=== PATIENT | male | born 1965 | race Caucasian/White ===

== ENCOUNTER → 2017-12-25 09:19 | Outpatient (CLI) | payer BC, SELFPAY ==
[2017-12-25 12:24] LABS: Absolute Lymphocyte Count 1.82 X10^3/ul (0.83-4.51); Absolute Neutrophil Count 2.6 X10^3/uL (2.0-7.7); Basophil# 0.01 X10^3/uL; Basophil% 0.2 % (0-1); Eosinophil# 0.13 X10^3/uL; Eosinophils% 2.4 % (0-5); Hematocrit 43.8 % (40-54); Hemoglobin 14.7 g/dl (13.0-16.5); Lymphocyte # 1.82 X10^3/ul (4.0); Lymphocyte % 33.8 % (19-41); Mean Corp Hgb Conc 33.6 g/gl (32-36); Mean Corpuscular Hgb 28.6 pg (27.0-32.0); Mean Corpuscular Volume 85.2 fL (80-94); Mean Platelet Vol. 10.3 fl (6.2-12.0); Monocyte# 0.77 X10^3/uL; Monocyte% 14.3 % (0-10); Neutrophil # 2.63 X10^3/uL (2.7-7.7); Neutrophil % 48.7 % (47-70); Platelet Count 222 K/mm3 (150-450); RBC Distribution Width SD 39.9 fl (35.1-43.9); Red Blood Count 5.14 M/mm3 (4.6-6.2); White Blood Count 5.4 K/mm3 (4.4-11.0)
[2017-12-25 12:29] LABS: POSITIVE COUNT NO; POSITIVE DIFFERENTIAL NO; POSITIVE MORPHOLOGY NO
[2017-12-25 12:38] LABS: ALB/GLOB Ratio 1.2 RATIO (0.9-2.4); AST(SGOT) 16 U/L (15-37); Alanine Aminotransfer ALT/SGPT 25 U/L (16-61); Albumin, Serum 4.1 g/dL (3.2-5.0); Alkaline Phosphatase 66 U/L (45-117); Anion Gap 6 (5-15); BUN 16 mg/dL (7-18); Calcium,Total 8.5 mg/dL (8.5-10.1); Chloride 105 mmol/L (98-107); Cholesterol 168 mg/dL (200); EST Glomerular Filtration Rate 83 mL/min (>60); Est Glom Filt Rate - Afr Amer 100 mL/min (>60); Globulin 3.4 g/dL (2.2-4.2); Glucose 83 mg/dL (74-106); High Density Lipoprotein 42 mg/dL; Potassium 4.2 mmol/L (3.5-5.1); Protein, Total 7.5 g/dL (6.4-8.2); Sodium Level 139 mmol/L (136-145); Triglycerides 67 mg/dL; Very Low Density Lipoprotein 13 mg/dL (5-40)
--- NOTE | 2017-12-25 14:09 | EKG12_ITS ---
Test Reason : HTN Blood Pressure : / mmHG Vent. Rate : 075 BPM Atrial Rate : 075 BPM P-R Int : 188 ms QRS Dur : 080 ms QT Int : 346 ms P-R-T Axes : 065 032 048 degrees QTc Int : 386 ms Normal sinus rhythm with sinus arrhythmia Normal ECG Confirmed by GIACOMO WILLSON, ELIN ([id number]), commissioning editor MARV FLOYD ([id number]) on 12/26/2017 12:52:02 PM Referred By: Dulce Franks Confirmed By:ELIN GOODEN MD
== END ==
PROVIDERS: Family Provider Internal Medicine; PCP Internal Medicine; Visit Provider Internal Medicine
DX: R03.0 Elevated blood-pressure reading, without diagnosis of hypertension (principal); S10.96XA Insect bite of unspecified part of neck, initial encounter; W57.XXXA Bitten or stung by nonvenomous insect and other nonvenomous arthropods, initial encounter
CPT/HCPCS: 36415; 80053; 80061; 85025; 93005

== ENCOUNTER → 2018-01-24 14:08 | Outpatient (CLI) | payer BC, SELFPAY ==
[2018-01-21 14:27] LABS: EST Glomerular Filtration Rate 74 mL/min (>60); Est Glom Filt Rate - Afr Amer 90 mL/min (>60)
--- NOTE | 2018-01-24 14:15 | CT_ITS ---
STUDY: CT SOFT TISSUE NECK WITH CONTRAST REASON FOR EXAM: Male, 52 years old. Left sided neck mass. Enlarged lymph nodes. RADIATION DOSAGE (If Supplied By Facility): CTDIvol = ( 21.48 ) mGy, DLP = ( 595.26 ) mGycm TECHNIQUE: The patient was scanned in a multi-detector CT scanner. High resolution transaxial imaging was performed following intravenous administration of 100 ml of Isovue 300 contrast material. Sagittal and coronal images were reconstructed. Individualized dose optimization techniques were used for this CT. COMPARISON: None. FINDINGS: Normal bilateral parotid glands. Normal bilateral mortgage assistant spaces. Normal bilateral parapharyngeal spaces. Normal bilateral sublingual and submandibular glands and spaces. Normal visualized nasopharynx. Normal retropharyngeal space. Normal perivertebral space. Normal visualized bilateral faucial tonsils. The visualized tongue, tongue base and oropharynx are normal. There are enlarged nodes predominantly in the left carotid space, the largest measures about 2.4 cm. There are few small nodes in the left posterior triangle of the neck. Few nodes are seen on the right side but normal in size. There is no demonstrated solid or cystic mass lesion. There is no abnormal contrast enhancement. Normal epiglottis, bilateral vallecula and hypopharynx. The pre-epiglottic and paraglottic adipose spaces are normal. Normal visualized bilateral piriform sinuses, aryepiglottic folds, vocal cords, and arytenoid-cricoid articulations. Normal subglottic trachea. Normal bilateral lobes of the thyroid gland. Normal visualized pulmonary apices. Normal visualized paranasal sinuses. There is straightening of the cervical spine. There is a small posterior degenerative spur at the level of C5-C6. CT/Soft Tissue Neck WITH Contrast IMPRESSION: Large nodes on the left side of the neck as described above. Unremarkable airway. Electronically Signed: Chriss Benavides MD at 14:21 EDT Tel , Service support ,
== END ==
PROVIDERS: Family Provider Internal Medicine; PCP Internal Medicine; Visit Provider Otolaryngology
DX: R59.0 Localized enlarged lymph nodes (principal)
CPT/HCPCS: 36415; 70491; 82565; Q9967

== ENCOUNTER 2018-02-07 07:51 | Day surgery (SDC) | payer BC, SELFPAY ==
[2018-02-07] VITALS (7 sets, daily range): BP systolic 114–145; BP diastolic 73–88; PULSE 68–90; RESP 16–18; TEMP 36–36.8; O2SAT 96–100; BMI 28.3
--- NOTE | 2018-02-07 | LYMN_PTH ---
PATIENT: TYRESE HERNANDEZ [place] [facility] [id number] AGE/SX: 52/M ROOM: RE02/07/[address]: Dr. Thony Cota MD : 1965 BED: DIS: 02/07/2018 SPEC #: [id number] RECD: 02/07/18 10:55 STATUS: [facility] #: [id number] RACH: 02/07/18 00:[address]: Thony Cota DEPT: SURGICAL PATHOLOGY RECD BY: Akilah Ramirez ENTERED: 02/07/18 11:30 SP TYPE: LYMPH NODE OTHR DR: Dr. Dulce Franks MD Tissues: LYMPH NODE BIOPSY Procedures: Frozen Section (charge) Surgery Specimen Level IV HEADER OPERATION: Biopsy/excision lymph node, open deep cervical node with FS PRE-OP DIAGNOSIS: Enlarged cervical lymph node - left TISSUE SUBMITTED: Cervical lymph node ? left, sent to lab for frozen at 1047 FROZEN SECTION DIAGNOSIS Left cervical lymph node, biopsy: Consistent with lymphoproliferative disorder. AM:nick 02/07/18 MICROSCOPIC DIAGNOSIS Left cervical lymph node, excision: Lymph node with benign lymphoid follicular hyperplasia. AM:manan 02/10/18 COMMENT Flow cytometric analysis and immunohistochemistries ([id number]) support the above diagnosis. The complete FLOW report is viewable in patient?s EMR. MICROSCOPIC DESCRIPTION Slides are reviewed. GROSS DESCRIPTION Received fresh for frozen section consultation/diagnosis labeled with the patient's name is a specimen designated cervical lymph node, left. The specimen consists of an ovoid fragment of veliz-yellow tissue measuring 6 x 3 x 2.2 cm. Sections revealed bulging, fresh, flush cut surface. Touch prep smears are prepared. Hairpiece Stylist sections are submitted for frozen section consultation. Portions of the tissue are submitted for flow cytometric analysis. Additional cash application representative sections are submitted for permanent section in cassettes 2-5. AM:manan 02/07/18 TC:5 CPT:54025, 69360
--- NOTE | 2018-02-07 | IMM_PTH ---
PATIENT: TYRESE HERNANDEZ [place] [facility] [place][id number] AGE/SX: 52/M ROOM: RE02/07/[address]: Dr. Thony Cota MD : 1965 BED: DIS: 02/07/2018 SPEC #: [id number] RECD: 02/10/18 15:38 STATUS: UCHE REQ #: [id number] RACH: 02/07/18 00:[address]: Thony Cota DEPT: IMMUNOHISTOCHEMISTRY RECD BY: Margaret Flores ENTERED: 02/10/18 15:40 SP TYPE: IMMUNO OTHR DR: Dr. Dulce Franks MD Tissues: Lymph node, NOS Procedures: BCL-2 (add) BCL-6 (add) CD10 (add) CD138 (add) CD15 (add) CD20 (add) CD30 (add) CD43 (add) CD45 (add) CD5 (add) CD79A (add) CYCLIN (add) KAPPA (add) LAMBDA (add) AE1 (add) MUM1 (add) CD3 (initial) PHYSICIAN & [place] [id number] SPECIMEN INFORMATION: Tissue Source: Left cervical lymph node, biopsy Clinical Info: Enlarging cervical lymph node, left Specimen Number: [id number] #2 CPT code: 87127, 18233 x16 METHODOLOGY: Deparaffinized sections of prefer/formalin-fixed tissue or PAP/DQ stained slides are incubated with monoclonal/polyclonal antibodies/oligonucleotide probes. Localization is made via biotin free immunoperoxidase method. Appropriate controls are performed and reacted as expected. Results on target cell population are indicated in the following table: RESULTS: ANTIBODY / CLONE RESULT Block #2 CD3 (PS1) positive CD5 (SP10) positive CD10 (56C6) negative CD15 (MMA) negative CD20 (L26) positive CD30 (William-H2) negative CD45 (RP2/18) positive CD79a (11E3) positive BCL-2 (bcl-2/100/D5) negative CD43 (L60) positive BCL-6 (EI746B/A8) negative [place]in D1/BCL-1 (SP4) negative MUM1 (MRQ-43) negative CD138 (B-A38) negative [place] (polyclonal) negative Lambda (polyclonal) negative AE1-3 (AE1/AE3/PCK26) negative These tests were developed and their performance characteristics determined by [facility]. They may not have been cleared or approved by the U.S. Food and Drug Administration. The FDA has determined that such clearance or approval is not necessary. INTERPRETATION: Left cervical lymph node, excision: Benign lymphoid follicular hyperplasia. AM:nick 02/12/18 Comment: A polytypic lymphocyte population is present. Flow analysis concurs.
[2018-02-07] MEDS: Bacitracin 500 UNITS/GM PACKET (10:25)
--- NOTE | 2018-02-07 11:03 | DCINST_ITS ---
You will use the following diet at home:: No restrictions Your food should be the consistency of: Regular Discharge Activity: Return to Normal Activity, May not drive while taking narcotic pain medications. Call your doctor if your incision/area has: Increased Pain/ Swelling, Increased Redness, Foul Smelling Discharge, Swelling at the incision site Call your doctor if you observe: Fever of 101 or Higher, Uncontrolled pain Allergies/Adverse Reactions: Allergies meperidine [From Demerol] Allergy (Severe, Verified 02/07/18 08:09) Low blood pressure Medications to take at Discharge NK [NK] 01/31/18 Primary Care Physician: Dulce Franks MD [Primary Care Provider] - Test Results: Test results from this visit will be discussed in further detail at your follow- up appointment, if applicable. Please Follow Up With: Thony Cota MD When: 2 weeks
--- NOTE | 2018-02-07 11:08 | OP.PCM_ITS ---
Problem List (1) Localized enlarged lymph nodes Status: Acute Report of Operation Date of Procedure: 02/07/18 Pre-Operative Diagnosis: Large left cervical lymphadenopathy Post-Operative Diagnosis: same Surgery/Procedure Performed:: Left deep cervical lymph node biopsy Description of Surgical Findings:: Yunior is a 52-year-old male since evaluation significant left-sided cervical lymphadenopathy. This is confirmed on CT scan although the size was significantly underreported at around 2 cm very palpable 6 centimeter mass was noted on clinical exam. As this was highly suspicious for neoplastic process excisional biopsy was advised for definitive evaluation and he is eager to proceed. The risks, alternatives, potential benefits, and complications were discussed at length and any questions answered to the patient and/or caregiver' s satisfaction. Witnessed informed consent was obtained in the office, and the patient and/or caregiver was agreeable to proceed. Procedure went as follows: The patient was identified in the preoperative holding brought to the operating room where he is placed under general anesthesia and intubated. When appropriate anesthesia is obtained, the left neck was prepped and draped in usual sterile fashion and the planned incision site injected 1% lidocaine with 100,000 epinephrine for a total of 3 cc. After lying for vasoconstriction a 15 blade scalpel used to make a 5 cm incision 2 cm below the mandibular angle to the skin and subcutaneous tissues and platysma. Dissection was then carried out along the sternocleidomastoid muscle where within the vascular sheath a massively enlarged lymph node was encountered. This was then dissected free from its surrounding capsule and the vascular pedicle with bipolar cautery. This was then sent for pathologic evaluation which revealed a 6 x 3.3 x 2.2 cm massively enlarged cervical lymph node suspicious for a follicular lymphoma. The wound was then closed deeply with interrupted 3-0 Vicryl sutures to close the space and reapproximate the platysma and subcutaneous tissues. A 5-0 Monocryl was then placed in a running suture to close the skin completing the surgical procedure. The patient was then returned to anesthesia where he was revived and extubated without complication having tolerated the procedure well. Type of Anesthesia:: General Anesthesiologist: Hiram Justice Special Medications: none Specimen's removed: left cervical lymph node Drains: none Estimated Blood Loss (mL): 0 mL Fluids Replaced: 1300 mL Grafts/Implants Used: none - Complications none - Admit VTE Documentation VTE Present on Admission: No VTE Mechan Device Prophylaxis: SCD's VTE Pharm Prophylaxis ordered?: No
[2018-02-07] MEDS: Ibuprofen 400 MG Tablet PO (12:30)
== END 2018-02-07 13:01 | disposition home or self-care (01) ==
LOC: SDC 07:52 → AC 07:53
PROVIDERS: Family Provider Internal Medicine; PCP Internal Medicine; Visit Provider Otolaryngology
PROC: (CPT 38510; principal; 2018-02-07 09:15)
DX: R59.0 Localized enlarged lymph nodes (principal)
CPT/HCPCS: 38510; 88305; 88331; 88341; 88342; J7120

== ENCOUNTER → 2018-12-23 08:20 | Outpatient (CLI) | payer BC, SELFPAY ==
[2018-12-16 08:52] VITALS: BMI 29.2
[2018-12-23 12:12] LABS: Absolute Lymphocyte Count 1.73 X10^3/ul (0.83-4.51); Absolute Neutrophil Count 2.5 X10^3/uL (2.0-7.7); Basophil# 0.01 X10^3/uL; Basophil% 0.2 % (0-1); Eosinophil# 0.16 X10^3/uL; Eosinophils% 3.2 % (0-5); Hematocrit 40.5 % (40-54); Hemoglobin 13.2 g/dl (13.0-16.5); Lymphocyte # 1.73 X10^3/ul (4.0); Lymphocyte % 34.1 % (19-41); Mean Corp Hgb Conc 32.6 g/gl (32-36); Mean Corpuscular Hgb 27.7 pg (27.0-32.0); Mean Corpuscular Volume 85.1 fL (80-94); Mean Platelet Vol. 10.1 fl (6.2-12.0); Monocyte# 0.61 X10^3/uL; Neutrophil # 2.54 X10^3/uL (2.7-7.7); Neutrophil % 50.1 % (47-70); Platelet Count 234 K/mm3 (150-450); RBC Distribution Width CV 14.1 % (11.6-14.6); RBC Distribution Width SD 42.9 fl (35.1-43.9); Red Blood Count 4.76 M/mm3 (4.6-6.2); White Blood Count 5.1 K/mm3 (4.4-11.0)
[2018-12-23 12:17] LABS: POSITIVE COUNT NO; POSITIVE DIFFERENTIAL NO; POSITIVE MORPHOLOGY NO
[2018-12-23 12:28] LABS: ALB/GLOB Ratio 1.3 RATIO (0.9-2.4); AST(SGOT) 20 U/L (15-37); Alanine Aminotransfer ALT/SGPT 29 U/L (16-61); Albumin, Serum 3.9 g/dL (3.2-5.0); Alkaline Phosphatase 75 U/L (45-117); Anion Gap 7 (5-15); BUN 19 mg/dL (7-18); BUN/Creat Ratio 20.6 RATIO (10-20); Calcium,Total 8.4 mg/dL (8.5-10.1); Chloride 105 mmol/L (98-107); Cholesterol 180 mg/dL (200); Creatinine, Serum 0.92 mg/dL (0.70-1.30); EST Glomerular Filtration Rate 90 mL/min (>60); Est Glom Filt Rate - Afr Amer 109 mL/min (>60); Globulin 3.1 g/dL (2.2-4.2); Glucose 88 mg/dL (74-106); High Density Lipoprotein 41 mg/dL; Potassium 4.1 mmol/L (3.5-5.1); Sodium Level 140 mmol/L (136-145); Triglycerides 186 mg/dL; Very Low Density Lipoprotein 37 mg/dL (5-40)
== END ==
PROVIDERS: Family Provider Internal Medicine; PCP Internal Medicine; Visit Provider Internal Medicine
DX: I10 Essential (primary) hypertension (principal)
CPT/HCPCS: 36415; 80053; 80061; 85025

== ENCOUNTER → 2019-04-21 09:33 | Outpatient (CLI) | payer BC, SELFPAY ==
[2019-04-17 10:49] VITALS: BMI 28.8
--- NOTE | 2019-04-21 09:35 | EKG12_ITS ---
Test Reason : ROUTINE Blood Pressure : / mmHG Vent. Rate : 077 BPM Atrial Rate : 077 BPM P-R Int : 194 ms QRS Dur : 084 ms QT Int : 344 ms P-R-T Axes : 052 020 053 degrees QTc Int : 389 ms Normal sinus rhythm Normal ECG Confirmed by GIACOMO WILLSON, ELIN ([id number]), pictures editor RUBIN LEÓN ([id number]) on 04/22/2019 11:16:54 AM Referred By: Dulce Franks Confirmed By:ELIN GOODEN MD
== END ==
PROVIDERS: Family Provider Internal Medicine; PCP Internal Medicine; Referring Provider Internal Medicine; Visit Provider Internal Medicine
DX: I10 Essential (primary) hypertension (principal)
CPT/HCPCS: 93005

== ENCOUNTER 2019-06-01 09:54 | Day surgery (SDC) | payer BC, SELFPAY ==
[2019-04-17 10:49] VITALS: BMI 28.8
[2019-06-01 10:21] VITALS: BP 134/80; PULSE 88; RESP 16; TEMP 36.7; O2SAT 98; BMI 28.1
[2019-06-01] MEDS: Lactated Ringers 1,000 ML 100 ML IV (10:33)
--- NOTE | 2019-06-01 10:43 | H&P.OPEN ---
History of Present Illness Date of Admission: 06/01/19 The patient is a 54 year old M here for screening colonoscopy. He has never had a colonoscopy in the past. He has no abdominal pain or blood in stool. He has no family history of colon cancer. He is not on any blood thinners. Past Medical/Surgical History - Planned Operation Planned Operative Procedure/s: COLONOSCOPY Date of Operative Procedure: 06/01/19 Permit Signed: Yes S.O.S: No Is This Patient Having a Total Joint: No - Previous Hospitalizations/Surgeries HX of Surgeries: BILAT HIP REPLACEMENT. GALLBLADDER REMOVED. EXC LYMPH NODE-CERVICAL LYMPH NODE 02/01 Any Problems With Anesthesia: No You/Your Family Experience Fever (Hyperthermia) With Anes: No Cholinesterase deficiency: No - Cardiovascular Hx Chest Pain within Last 2 months: No Hx of Irregular Heartbeat and/or Afib: No Hx Heart Attack: No Hx Congestive Heart Failure: No Hx Rheumatic Fever: No Hx Hypertension: Yes - ON MED, CONTROLLED Hx Internal Defibrillator: No Hx Pacemaker: No Hx Cardiac Catheterization: No Hx Cardiac Surgery/Stents/Etc.: No Hx Stress Test: No HX Edema: No Hx Pain in Legs when Walking/Leg Cramps: Yes - OCCAS CRAMP - Respiratory Chronic Cough: No HX of Shortness of Breath: No Hoarseness: No Hx Chronic Obstructive Pulmonary Disease (COPD): No Hx Asthma: No Hx Emphysema: No Hx Sleep Apnea: No Hx Oxygen Use at Home: No Hx Respiratory Tract Infection/Cold (presently): Yes - COLD, NO FEVER Do You Snore Loudly (louder than talking or can be heard): Yes Do You Often Feel Tired/ Fatigued/ Sleepy Dring Daytime?: No Has Anyone Observed You Stop Breathing During Sleep?: No Result (for STOP score): Positive Hx Smoking: No Smoking Status: Never smoker - Gastrointestinal Hx Gastroesophageal Reflux: No Hx Gastrointestinal Disorders: No Hx Gastrointestinal Bleed: No Hx Ulcer: No Hx Hiatal Hernia: No Difficulty Chewing/Swallowing: No Recent Onset of Swallowing Problems: No Special diet followed at home: No Hx Unplanned Weight Loss of 20#: No HX Unplanned Weight Gain of 20#: No - Neurological Hx Seizures: No HX Syncope/Blackout Spells/Unconsciousness: Yes - PASSED OUT WITH DEMEROL Hx CVA/Stroke: No Hx Transient Ischemic Attacks (TIA): No Hx Multiple Sclerosis: No Hx Parkinson's Disease: No Hx Head/Neck Injury: No Hx Headaches: No Hx Back Injury/Pain: Yes Recent Onset of Speech Difficulty: No Restless Legs: Yes - NOT OFTEN Does patient have nerve stimulator: No - Blood Disorder Hx Leukemia: No Bleeding Tendencies: No Hx Deep Vein Thrombosis: No Hx High Cholesterol: No Blood Transmitted Disease: No Hx Hepatitis: No Hx Cirrhosis: No Hx Anemia: No Hx Blood Disorders: No - Genitourinary Hx Renal Disease: No - Musculoskeletal Hx Arthritis: Yes - HIPS Hx Rheumatoid Arthritis: No Hx Gout: No Recent Onset of an Orthopedic Problem: No - Endocrine Hx Diabetes: No Thyroid Disease: No Hx Steroid Therapy: No - Psycho/Social Hx Substance Use: No 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 Hx Anxiety: No Hx Depression: No Mental Illness: No Hx Dementia: No - Miscellaneous Hx Cancer: No Recent Exposure to Contagious Disease: No Active MRSA: No Hx of C-Diff: No Any Loose Teeth: No Allergies meperidine [From Demerol] Allergy (Severe, Verified 06/01/19 10:19) Low blood pressure - Discharge Is Pt Admitted From a Fdc, or a Detention: No Who Could Help: CHILDREN After D/C, Where Do you Plan to Go: Return Home - Physical Exam Vitals/I&O's: Vital Signs Temp Pulse Resp BP Pulse Ox 98.0 F 88 16 134/80 H 98 06/01/19 10:21 06/01/19 10:21 06/01/19 10:21 06/01/19 10:21 06/01/19 10:21 Oxygen Delivery Method Room Air Weight: 196 lb 3.382 oz Body Mass Index (BMI) 28.1 General: Alert, Oriented x3 Lungs: Normal air movement Cardiovascular: Regular rate, Regular Rhythm Abdomen: Soft, Non Tender, Non-Distended Current Medications Lactated Ringer's () 1,000 mls @ 100 mls/hr IV .Q10H THIERNO Last Admin: 06/01/19 10:33 Dose: 100 mls/hr Documented by: Assessment/Plan All Active Problems (Last Reviewed 04/17/19 @ 10:48 by Rina Barahona) Localized enlarged lymph nodes (Acute) Otitis media (Acute) Tick bite of neck (Acute) Retained tick parts of neck (Acute) 54-year-old male for screening colonoscopy I explained endoscopy in detail to the patient. I explained the risks including but not limited to stroke or heart attack with anesthesia, perforation of the GI tract, bleeding, infection. I explained that any of these could necessitate further emergency surgery. The patient understands and all questions were answered sufficiently. The patient wishes to proceed with procedure. Erasmo Mckee MD Pager: [facility] [address] [place] [address] [address] [place] [address] Office: Surgery Risks - Colonoscopy Risks Include but are not Limited To: Risks include but are not limited to: Bleeding, perforation requiring further surgery, inability to complete colonoscopy requiring barium enema.
--- NOTE | 2019-06-01 11:13 | OP.COLON_ITS ---
Patient Name: Yunior Schaefer Procedure Date: 06/01/2019 10:43 AM Date of : 1965 Age: 54 Procedure: Colonoscopy Indications: Screening for colorectal malignant neoplasm Providers: Erasmo Mckee MD Referring MD: Dulce Franks MD Medicines: Monitored Anesthesia Care Patient Profile: This is a 54 year old male. Refer to note in patient chart for documentation of history and physical. Last Colonoscopy: none. The patient's first colonoscopy is today. Complications: No immediate complications. Procedure: Pre-Anesthesia Assessment: - Prior to the procedure, a History and Physical was performed, and patient medications and allergies were reviewed. The patient's tolerance of previous anesthesia was also reviewed. The risks and benefits of the procedure and the sedation options and risks were discussed with the patient. All questions were answered, and informed consent was obtained. Prior Anticoagulants: The patient has taken no previous anticoagulant or antiplatelet agents. After reviewing the risks and benefits, the patient was deemed in satisfactory condition to undergo the procedure. After I obtained informed consent, the scope was passed under direct vision. Throughout the procedure, the patient's blood pressure, pulse, and oxygen saturations were monitored continuously. The colonoscope was introduced through the anus and advanced to the cecum, identified by appendiceal orifice and ileocecal valve. The colonoscopy was performed without difficulty. The patient tolerated the procedure well. The quality of the bowel preparation was good. Scope In: 10:57:38 AM Scope Withdrawal Time 0 hours 6 minutes 11 seconds Scope Out: 11:10:43 AM Total Procedure Duration Time 0 hours 13 minutes 5 seconds Findings: The entire examined colon appeared normal on direct and retroflexion views. Impression: - The entire examined colon is normal on direct and retroflexion views. - No specimens collected. Recommendation: - Discharge patient to home. - Resume previous diet. - Continue present medications. - Repeat colonoscopy in 10 years for screening purposes. Procedure Code(s): --- Professional --- 74551, Colonoscopy, flexible; diagnostic, including collection of specimen(s) by brushing or washing, when performed (separate procedure) Diagnosis Code(s): --- Professional --- Z12.11, Encounter for screening for malignant neoplasm of colon CPT copyright 2017 [employer]. All rights reserved. The codes documented in this report are preliminary and upon drawer waxer review may be revised to meet current compliance requirements. Erasmo Mckee MD 06/01/2019 11:13:00 AM This report has been signed electronically. Number of Addenda: 0 Note Initiated On: 06/01/2019 10:43 AM
[2019-06-01 11:14] VITALS: BP 134/80; PULSE 78; RESP 16; TEMP 36.7; O2SAT 95
[2019-06-01 11:20] VITALS: BP 106/68; BP 134/80; PULSE 76; RESP 18; O2SAT 97
[2019-06-01 11:25] VITALS: BP 103/68; BP 134/80; PULSE 72; RESP 18; O2SAT 98
[2019-06-01 11:30] VITALS: BP 110/71; BP 134/80; PULSE 78; RESP 18; TEMP 36.6; O2SAT 100
[2019-06-01 11:50] VITALS: BP 134/80
== END 2019-06-01 11:57 | disposition home or self-care (01) ==
LOC: EN 09:55 → AC 09:56
PROVIDERS: Family Provider Internal Medicine; PCP Internal Medicine; Referring Provider Internal Medicine; Visit Provider Surgery
PROC: 0DJD8ZZ Inspection of Lower Intestinal Tract, Via Natural or Artificial Opening Endoscopic (ICD-10-PCS; CPT 45378; principal; 2019-06-01 10:55)
DX: Z12.11 Encounter for screening for malignant neoplasm of colon (principal); I10 Essential (primary) hypertension; Z79.899 Other long term (current) drug therapy; G25.81 Restless legs syndrome
CPT/HCPCS: 45378; J7120

== ENCOUNTER → 2019-07-23 08:27 | Outpatient (CLI) | payer BC, SELFPAY ==
[2019-07-23 13:04] LABS: ALB/GLOB Ratio 1.3 RATIO (0.9-2.4); AST(SGOT) 14 U/L (15-37); Alanine Aminotransfer ALT/SGPT 26 U/L (16-61); Albumin, Serum 4.1 g/dL (3.2-5.0); Alkaline Phosphatase 69 U/L (45-117); Anion Gap 4 (5-15); BUN 13 mg/dL (7-18); BUN/Creat Ratio 12.7 RATIO (10-20); Calcium,Total 9.1 mg/dL (8.5-10.1); Chloride 106 mmol/L (98-107); Creatinine, Serum 1.02 mg/dL (0.70-1.30); EST Glomerular Filtration Rate 81 mL/min (>60); Est Glom Filt Rate - Afr Amer 97 mL/min (>60); Globulin 3.1 g/dL (2.2-4.2); Glucose 90 mg/dL (74-106); Potassium 4.1 mmol/L (3.5-5.1); Protein, Total 7.2 g/dL (6.4-8.2); Sodium Level 138 mmol/L (136-145)
== END ==
PROVIDERS: PCP Internal Medicine; Visit Provider Internal Medicine
DX: I10 Essential (primary) hypertension (principal)
CPT/HCPCS: 36415; 80053

== ENCOUNTER → 2020-06-03 08:31 | Outpatient (CLI) | payer BC, SELFPAY ==
[2020-06-03 08:10] VITALS: BMI 28.5
[2020-06-03 12:17] LABS: Absolute Lymphocyte Count 1.79 X10^3/uL (0.83-4.51); Basophil# 0.03 X10^3/uL; Basophil% 0.5 % (0-1); Eosinophil# 0.17 X10^3/uL; Hematocrit 45.5 % (40-54); Hemoglobin 14.7 g/dL (13.0-16.5); Lymphocyte # 1.79 X10^3/ul (4.0); Lymphocyte % 31.1 % (19-41); Mean Corp Hgb Conc 32.3 g/dL (32-36); Mean Corpuscular Hgb 28.4 pg (27.0-32.0); Mean Platelet Vol. 10.1 fl (6.2-12.0); Monocyte# 0.77 X10^3/uL; Monocyte% 13.4 % (0-10); NRBC Flagged by Analyzer 0 % (0-5); Neutrophil # 2.96 X10^3/uL (2.7-7.7); Neutrophil % 51.3 % (47-70); Platelet Count 235 K/mm3 (150-450); RBC Distribution Width CV 13.1 % (11.6-14.6); RBC Distribution Width SD 42.5 fl (35.1-43.9); Red Blood Count 5.17 M/mm3 (4.6-6.2); White Blood Count 5.8 K/mm3 (4.4-11.0)
[2020-06-03 12:46] LABS: ALB/GLOB Ratio 1.2 RATIO (0.9-2.4); AST(SGOT) 13 U/L (15-37); Alanine Aminotransfer ALT/SGPT 28 U/L (16-61); Alkaline Phosphatase 76 U/L (45-117); Anion Gap 3 (5-15); BUN 17 mg/dL (7-18); BUN/Creat Ratio 19.7 RATIO (10-20); Calcium,Total 8.5 mg/dL (8.5-10.1); Chloride 107 mmol/L (98-107); Cholesterol 164 mg/dL (200); Creatinine, Serum 0.86 mg/dL (0.70-1.30); EST Glomerular Filtration Rate 97 mL/min (>60); Est Glom Filt Rate - Afr Amer 118 mL/min (>60); Globulin 3.3 g/dL (2.2-4.2); Glucose 86 mg/dL (74-106); High Density Lipoprotein 47 mg/dL; PSA,Total - Annual Screen 0.97 ng/mL (0.00-4.00); Protein, Total 7.3 g/dL (6.4-8.2); Sodium Level 140 mmol/L (136-145); Thyroid Stim Hormone (TSH) 1.93 uIU/mL (0.358-3.74); Triglycerides 79 mg/dL; Very Low Density Lipoprotein 16 mg/dL (5-40)
== END ==
PROVIDERS: PCP Internal Medicine; Referring Provider Nurse Practitioner Family; Visit Provider Nurse Practitioner Family
DX: Z00.00 Encounter for general adult medical examination without abnormal findings (principal); I10 Essential (primary) hypertension
CPT/HCPCS: 36415; 80053; 80061; 84153; 84443; 85025; G0103

== ENCOUNTER → 2021-06-06 08:29 | Outpatient (CLI) | payer OTHER, SELFPAY ==
[2021-06-06 12:21] LABS: Absolute Lymphocyte Count 1.38 X10^3/uL (0.83-4.51); Absolute Neutrophil Count 7.2 X10^3/uL (2.0-7.7); Basophil# 0.04 X10^3/uL; Basophil% 0.4 % (0-1); Eosinophil# 0.15 X10^3/uL; Eosinophils% 1.4 % (0-5); Hematocrit 44.3 % (40-54); Hemoglobin 14.3 g/dL (13.0-16.5); Lymphocyte # 1.38 X10^3/ul (0.83-4.51); Lymphocyte % 13.2 % (19-41); Mean Corp Hgb Conc 32.3 g/dL (32-36); Mean Corpuscular Volume 86.9 fL (80-94); Mean Platelet Vol. 10.2 fl (6.2-12.0); Monocyte% 15.3 % (0-10); NRBC Flagged by Analyzer 0 % (0-5); Neutrophil # 7.21 X10^3/uL (2.7-7.7); Neutrophil % 68.9 % (47-70); POSITIVE DIFFERENTIAL YES; Platelet Count 223 K/mm3 (150-450); RBC Distribution Width CV 12.9 % (11.6-14.6); RBC Distribution Width SD 40.7 fl (35.1-43.9); White Blood Count 10.5 K/mm3 (4.4-11.0)
[2021-06-06 12:23] LABS: Differential Indicated SCAN CRITERIA MET
[2021-06-06 12:39] LABS: ALB/GLOB Ratio 1.1 RATIO (0.9-2.4); AST(SGOT) 23 U/L (15-37); Alanine Aminotransfer ALT/SGPT 36 U/L (16-61); Albumin, Serum 3.9 g/dL (3.2-5.0); Alkaline Phosphatase 74 U/L (45-117); Anion Gap 5 (5-15); BUN 15 mg/dL (7-18); BUN/Creat Ratio 16.8 RATIO (10-20); Calcium,Total 9.1 mg/dL (8.5-10.1); Chloride 103 mmol/L (98-107); Cholesterol 169 mg/dL (200); EST Glomerular Filtration Rate 93 mL/min (>60); Est Glom Filt Rate - Afr Amer 113 mL/min (>60); Globulin 3.5 g/dL (2.2-4.2); Glucose 89 mg/dL (74-106); High Density Lipoprotein 48 mg/dL; Potassium 4.1 mmol/L (3.5-5.1); Protein, Total 7.4 g/dL (6.4-8.2); Sodium Level 136 mmol/L (136-145); Triglycerides 76 mg/dL; Very Low Density Lipoprotein 15 mg/dL (5-40)
[2021-06-06 12:47] LABS: Differential Comment SCANNED
== END ==
PROVIDERS: PCP Internal Medicine; Referring Provider Physician Assistant; Visit Provider Physician Assistant
DX: Z00.00 Encounter for general adult medical examination without abnormal findings (principal); I10 Essential (primary) hypertension; Z13.220 Encounter for screening for lipoid disorders
CPT/HCPCS: 36415; 80053; 80061; 85025

== ENCOUNTER → 2022-06-13 | Outpatient (CLI) | payer OTHER, SELFPAY ==
[2022-06-13 12:46] LABS: Hematocrit 42.6 % (40-54); Hemoglobin 14.4 g/dL (13.0-16.5); Mean Corp Hgb Conc 33.8 g/dL (32-36); Mean Corpuscular Hgb 29.9 pg (27.0-32.0); Mean Corpuscular Volume 88.4 fL (80-94); Mean Platelet Vol. 9.3 fl (6.2-12.0); POSITIVE COUNT YES; POSITIVE MORPHOLOGY YES; Platelet Count 314 K/mm3 (150-450); RBC Distribution Width CV 13.3 % (11.6-14.6); Red Blood Count 4.82 M/mm3 (4.6-6.2); White Blood Count 13.2 K/mm3 (4.4-11.0)
[2022-06-13 12:52] LABS: AST(SGOT) 18 U/L (15-37); Alanine Aminotransfer ALT/SGPT 32 U/L (16-61); Albumin, Serum 3.6 g/dL (3.2-5.0); Alkaline Phosphatase 67 U/L (45-117); Anion Gap 6 (5-15); BUN 18 mg/dL (7-18); BUN/Creat Ratio 19.7 RATIO (10-20); Chloride 103 mmol/L (98-107); Cholesterol 143 mg/dL (200); Creatinine, Serum 0.91 mg/dL (0.70-1.30); EST Glomerular Filtration Rate 90 mL/min (>60); Est Glom Filt Rate - Afr Amer 109 mL/min (>60); Globulin 3.5 g/dL (2.2-4.2); Glucose 98 mg/dL (74-106); High Density Lipoprotein 64 mg/dL; PSA,Total - Annual Screen 1.06 ng/mL (0.00-4.00); Protein, Total 7.1 g/dL (6.4-8.2); Sodium Level 140 mmol/L (136-145); Triglycerides 88 mg/dL; Very Low Density Lipoprotein 18 mg/dL (5-40)
[2022-06-13 12:54] LABS: Differential Indicated MANUAL DIFF
[2022-06-13 13:15] LABS: Lymphocyte 26 % (19-41); Monocyte 6 % (0-10); Myelocyte 1 % (0-0); Neutrophil-Segmented 67 % (47-70); Total Cells Counted 100 (MANUAL DIFF)
[2022-06-13 13:16] LABS: Absolute Neutrophil Count 8.8 X10^3/uL (2.0-7.7); Platelet Estimate ADEQUATE (ADEQ); Red Cell Morphology NORM C+C NORMAL (NORM C&C)
[2022-06-13 13:17] LABS: Absolute Lymphocyte Count 3.43 X10^3/uL (0.83-4.51)
[2022-06-14 12:25] LABS: Pathologist Review Reviewed
== END | disposition home or self-care (01) ==
LOC: BIMLAB 09:07
PROVIDERS: PCP Internal Medicine; Referring Provider Internal Medicine; Visit Provider Internal Medicine
DX: Z00.00 Encounter for general adult medical examination without abnormal findings (principal); Z12.5 Encounter for screening for malignant neoplasm of prostate
CPT/HCPCS: 36415; 80053; 80061; 84153; 85025; G0103

== ENCOUNTER → 2023-05-31 | Outpatient (CLI) | payer OTHER, SELFPAY ==
[2023-05-31 12:25] LABS: Absolute Neutrophil Count 2.9 X10^3/uL (2.0-7.7); Basophil# 0.03 X10^3/uL; Basophil% 0.5 % (0-1); Eosinophil# 0.24 X10^3/uL; Eosinophils% 4.2 % (0-5); Hematocrit 46.4 % (40-54); Hemoglobin 15.1 g/dL (13.0-16.5); Lymphocyte % 31.5 % (19-41); Mean Corp Hgb Conc 32.5 g/dL (32-36); Mean Corpuscular Hgb 28.6 pg (27.0-32.0); Mean Corpuscular Volume 87.9 fL (80-94); Mean Platelet Vol. 10.3 fl (6.2-12.0); Monocyte# 0.75 X10^3/uL; Monocyte% 13.1 % (0-10); NRBC Flagged by Analyzer 0 % (0-5); Neutrophil # 2.87 X10^3/uL (2.7-7.7); Neutrophil % 50.2 % (47-70); Platelet Count 238 K/mm3 (150-450); RBC Distribution Width CV 13.2 % (11.6-14.6); Red Blood Count 5.28 M/mm3 (4.6-6.2); White Blood Count 5.7 K/mm3 (4.4-11.0)
[2023-05-31 12:26] LABS: ALB/GLOB Ratio 1.1 RATIO (0.9-2.4); AST(SGOT) 17 U/L (15-37); Alanine Aminotransfer ALT/SGPT 23 U/L (16-61); Albumin, Serum 3.9 g/dL (3.2-5.0); Alkaline Phosphatase 72 U/L (45-117); Anion Gap 2 (5-15); BUN 16 mg/dL (7-18); BUN/Creat Ratio 17.6 RATIO (10-20); Calcium,Total 9.2 mg/dL (8.5-10.1); Chloride 106 mmol/L (98-107); Cholesterol 179 mg/dL (200); Creatinine, Serum 0.91 mg/dL (0.70-1.30); EST Glomerular Filtration Rate 91 mL/min (>60); Est Glom Filt Rate - Afr Amer 110 mL/min (>60); Globulin 3.4 g/dL (2.2-4.2); Glucose 97 mg/dL (74-106); High Density Lipoprotein 48 mg/dL; Potassium 4.3 mmol/L (3.5-5.1); Protein, Total 7.3 g/dL (6.4-8.2); Sodium Level 138 mmol/L (136-145); Triglycerides 69 mg/dL; Very Low Density Lipoprotein 14 mg/dL (5-40)
== END | disposition home or self-care (01) ==
LOC: BIMLAB 09:19
PROVIDERS: PCP Internal Medicine; Referring Provider Internal Medicine; Visit Provider Internal Medicine
DX: Z00.00 Encounter for general adult medical examination without abnormal findings (principal)
CPT/HCPCS: 36415; 80053; 80061; 85025

== ENCOUNTER → 2024-06-03 | Outpatient (CLI) | payer OTHER, SELFPAY ==
[2024-06-03 12:12] LABS: Absolute Lymphocyte Count 1.44 X10^3/uL (0.83-4.51); Absolute Neutrophil Count 5.4 X10^3/uL (2.0-7.7); Basophil# 0.03 X10^3/uL; Basophil% 0.4 % (0-1); Eosinophil# 0.36 X10^3/uL; Eosinophils% 4.3 % (0-5); Hematocrit 46.6 % (40-54); Hemoglobin 15.2 g/dL (13.0-16.5); Lymphocyte # 1.44 X10^3/ul (0.83-4.51); Lymphocyte % 17.3 % (19-41); Mean Corp Hgb Conc 32.6 g/dL (32-36); Mean Corpuscular Hgb 28.6 pg (27.0-32.0); Mean Corpuscular Volume 87.8 fL (80-94); Mean Platelet Vol. 9.8 fl (6.2-12.0); Monocyte# 1.05 X10^3/uL; Monocyte% 12.6 % (0-10); NRBC Flagged by Analyzer 0 % (0-5); Neutrophil % 64.7 % (47-70); Platelet Count 237 K/mm3 (150-450); RBC Distribution Width CV 12.8 % (11.6-14.6); RBC Distribution Width SD 41.1 fl (35.1-43.9); Red Blood Count 5.31 M/mm3 (4.6-6.2); White Blood Count 8.3 K/mm3 (4.4-11.0)
[2024-06-03 12:35] LABS: ALB/GLOB Ratio 1.1 RATIO (0.9-2.4); AST(SGOT) 17 U/L (15-37); Alanine Aminotransfer ALT/SGPT 26 U/L (16-61); Alkaline Phosphatase 83 U/L (45-117); Anion Gap 7 (5-15); BUN 11 mg/dL (7-18); BUN/Creat Ratio 12.9 RATIO (10-20); Calcium,Total 9.1 mg/dL (8.5-10.1); Chloride 103 mmol/L (98-107); Cholesterol 177 mg/dL (200); Creatinine, Serum 0.85 mg/dL (0.70-1.30); EST Glomerular Filtration Rate 97 mL/min (>60); Est Glom Filt Rate - Afr Amer 118 mL/min (>60); Globulin 3.5 g/dL (2.2-4.2); Glucose 105 mg/dL (74-106); High Density Lipoprotein 51 mg/dL; PSA,Total - Annual Screen 1.44 ng/mL (0.00-4.00); Potassium 4.5 mmol/L (3.5-5.1); Protein, Total 7.5 g/dL (6.4-8.2); Sodium Level 136 mmol/L (136-145); Triglycerides 72 mg/dL; Very Low Density Lipoprotein 14 mg/dL (5-40)
== END | disposition home or self-care (01) ==
LOC: BIMLAB 09:31
PROVIDERS: PCP Internal Medicine; Referring Provider Internal Medicine; Visit Provider Internal Medicine
DX: Z00.00 Encounter for general adult medical examination without abnormal findings (principal)
CPT/HCPCS: 36415; 80053; 80061; 84153; 85025; G0103

== ENCOUNTER → 2025-06-04 | Outpatient (CLI) | payer OTHER, SELFPAY ==
[2025-06-04 12:28] LABS: Hematocrit 44.4 % (40-54); Hemoglobin 14.7 g/dL (13.0-16.5); Immature Granulocytes Count 0.030 X10^3/uL (0.0-0.0); Mean Corp Hgb Conc 33.1 g/dL (32-36); Mean Corpuscular Volume 88.1 fL (80-94); Mean Platelet Vol. 10.0 fl (6.2-12.0); NRBC Flagged by Analyzer 0 % (0-5); Platelet Count 225 K/mm3 (150-450); RBC Distribution Width CV 12.8 % (11.6-14.6); RBC Distribution Width SD 41.4 fl (35.1-43.9); Red Blood Count 5.04 M/mm3 (4.6-6.2); White Blood Count 6.8 K/mm3 (4.4-11.0)
[2025-06-04 13:16] LABS: AST(SGOT) 24 U/L (<=37); Alanine Aminotransfer ALT/SGPT 27 U/L (<=46); Albumin, Serum 4.5 g/dL (3.4-4.8); Alkaline Phosphatase 71 U/L (40-129); Anion Gap 10 (5-15); BUN 13 mg/dL (4-19); BUN/Creat Ratio 15.1 RATIO (10-20); Calcium,Total 9.1 mg/dL (7.6-11.0); Carbon Dioxide 26.9 mmol/L (21.0-32.0); Chloride 104 mmol/L (98-108); Cholesterol 177 mg/dL (<=200); Globulin 2.6 g/dL (2.2-4.2); Glucose 87 mg/dL (70-99); Low Density Lipoprotein Calc. 116 mg/dL; PSA,Total - Annual Screen 1.16 ng/mL (0.02-4.00); Potassium 3.9 mmol/L (3.3-5.1); Triglycerides 112 mg/dL; Very Low Density Lipoprotein 22 mg/dL (5-40); cholesterol:hdl ratio screen 4.34
== END | disposition home or self-care (01) ==
LOC: MTLAB 10:00
PROVIDERS: PCP Internal Medicine; Referring Provider Internal Medicine; Visit Provider Internal Medicine
DX: Z00.00 Encounter for general adult medical examination without abnormal findings (principal)
CPT/HCPCS: 36415; 80053; 80061; 84153; 85025; G0103

== ENCOUNTER → 2025-06-14 | Outpatient (CLI) | payer OTHER, SELFPAY ==
--- NOTE | 2025-06-14 12:12 | US_ITS ---
PROCEDURE: HEAD/NECK SOFT TISSUE 06/14/2025 REASON FOR EXAM: LEFT SIDED ANTERIOR NECK SWELLING TECHNIQUE: Procedure Code: USH/N SOFT Modality: US Procedure: HEAD/NECK SOFT TISSUE COMPARISON: None. FINDINGS: Grayscale and color Doppler images obtained of the soft tissue neck at the level of the mandible. Numerous Iso slightly hypoechoic lesions noted. Largest 3.4 x 2.6 x 1.3 cm. 2nd largest 2.3 x 1.6 x 0.6 cm. These may represent enlarged lymph nodes. Remainder of the adjacent soft tissues negative. US/Head/Neck Soft Tissue IMPRESSION: Probable left cervical adenopathy. To better define CT of the neck with contrast recommended. Reading Location: [id number]
--- OUTSIDE RECORDS SUMMARY | 2025-06-14 15:58 | XMS RPT_ITS | CCD ---
Author Organization [facility] Inform ion Partnership [facility] Care Team Providers Care Press Operator Printing Name Role Phone Dr. Dulce Franks Primary Care Provider [phone] Dr. Dulce Franks Attending Provider [phone] Dr. Dulce Franks Referring Provider [phone] No, Physician Primary Care Provider Dr. Dulce Mills Primary Care Provider [phone] Dr. Dulce Franks Attending Provider [phone] Dr. Dulce Franks Referring Provider [phone] Dulce Franks Referring Unavailable Oleghe, Efewongbe Primary Care Unavailable Tiny Efewongbe Attending Unavailable Oleghe Efewongbe Referring Unavailable Oleghe, Efewongbe Primary Care Unavailable Tiny Efewongbe Attending Unavailable WILIAN MAYA Referring Unavailable WILIAN MAYA Admitting Unavailable NO, PHYSICIAN Primary Care Unavailable WILIAN MAYA Attending Unavailable NO, PHYSICIAN Primary Care Unavailable Allergies Allergy Classification Reported Allergen(s) Allergy Type Date of Onset Reaction(s) Facility (6 sources) Meperidine; Translations: [MEPERIDINE] Drug Allergy 6 Other (See Comments) [facility] (1 source) Meperidine Drug Allergy 4 [facility] Repository Medications Current Medications Medication Drug Class(es) Dates Sig (Normalized) Sig (Original) amLODIPine 5 mg oral tablet (20 sources) Dihydropyridine Calcium Channel Naomi Start: 06-06-2021 End: 02-03-2023 take 1 tablet by mouth once daily Amlodipine (Norvasc) 5 mg tablet Active 5 MG PO DAILY February 03, 2023 5:53pm Start: 06-06-2021 End: 06-06-2021 take 7.5 mg by mouth once daily Amlodipine (Norvasc) 5 mg tablet Discontinued 7.5 MG PO DAILY June 06, 2021 12:00am June 06, 2021 8:15am Start: 01-16-2019 End: 05-02-2021 take 7.5 mg by mouth once daily Amlodipine Discontinued 7.5 MG PO DAILY 135 90 February 01, 2021 3:42pm May 02, 2021 12:01am Start: 12-16-2018 End: 01-16-2019 take 5 mg by mouth once daily Amlodipine Discontinued 5 MG PO DAILY December 15, 2018 11:00pm January 16, 2019 10:04am Completed/Discontinued Medications Medication Drug Class(es) Dates Sig (Normalized) Sig (Original) amoxicillin 875 mg / clavulanate 125 mg oral tablet (2 sources) Penicillin-class Antibacterial Start: 12-24-2017 End: 01-08-2018 take 1 tablet by mouth every twelve hours Amoxicillin-Pot Clavulanate Discontinued 1 TABLET PO Q12H December 23, 2017 11:00pm January 08, 2018 3:25pm baclofen 10 mg oral tablet (2 sources) gamma-Aminobutyric Acid-ergic Agonist Start: 06-13-2022 End: 05-31-2023 Baclofen Discontinued EACH PO June 13, 2022 12:00am May 31, 2023 8:50am doxycycline hyclate 100 mg oral capsule (2 sources) Tetracycline-class Drug Start: 05-20-2017 End: 05-21-2017 take 2 capsules by mouth once Doxycycline Hyclate Discontinued 200 MG PO ONCE 2 1 May 20, 2017 12:00am May 21, 2017 12:08am Take 2 100mg capsules once. predniSONE 20 mg oral tablet (2 sources) Start: 06-13-2022 End: 05-31-2023 Prednisone Discontinued EACH PO June 13, 2022 12:00am May 31, 2023 8:50am Problems Problem Classification Problem Date Documented Da te Episodic/Chronic Essential hypertension (4 sources) Hypertensive disorder; Translations: [Essential (primary) hypertension] Chronic Headache; including migraine (2 sources) Chronic headache disorder; Translations: [Chronic headache] 02-07-2018 Episodic Lymphadenitis (2 sources) Localized enlarged lymph nodes; Translations: [Localized enlarged lymph nodes] 02-07-2018 Episodic Osteoarthritis (2 sources) Arthritis; Translations: [Unspecified osteoarthritis, unspecified site] 02-07-2018 Chronic Other connective tissue disease (1 source) History of repair of hip joint; Translations: [Presence of artificial hip joint, bilateral] Chronic Other connective tissue disease (2 sources) History of total replacement of bilateral hip joints; Translations: [Presence of artificial hip joint, bilateral] 07-02-2023 Chronic Other connective tissue disease (2 sources) Foreign body of skin of neck; Translations: [Residual foreign body in soft tissue] 02-07-2018 Episodic Other connective tissue disease (2 sources) Trochanteric bursitis; Translations: [Trochanteric bursitis, right hip] 06-13-2022 Episodic Other connective tissue disease (1 source) Trochanteric bursitis, right hip; Translations: [Enthesopathy of hip region] Episodic Other ear and sense organ disorders (2 sources) Hearing disorder; Translations: [Unspecified hearing loss, unspecified ear] 02-07-2018 Chronic Other ear and sense organ disorders (2 sources) Ear sensations - finding; Translations: [Other specified disorders of ear, bilateral] 02-07-2018 Episodic Other non-traumatic joint disorders (2 sources) Pain in unspecified knee; Translations: [Knee pain] 02-07-2018 Episodic Other non-traumatic joint disorders (2 sources) Pain in right hip; Translations: [Pain in right hip] Onset: 07-14-2024 Episodic Other non-traumatic joint disorders (2 sources) Pain in left hip; Translations: [Pain in left hip] Onset: 07-14-2024 Episodic Other skin disorders (1 source) Localized swelling, mass and lump, neck; Translations: [Localized swelling, mass and lump, neck] Onset: 06-03-2024 Episodic Otitis media and related conditions (2 sources) Otitis media; Translations: [Otitis media, unspecified, unspecified ear] 02-07-2018 Episodic Residual codes; unclassified (2 sources) History of vaccination; Translations: [Personal history of other drug therapy] 06-06-2021 Episodic Superficial injury; contusion (2 sources) Tick bite; Translations: [Insect bite of unspecified part of neck, initial encounter] 02-07-2018 Episodic Results Test Name Value Interpretation Reference Range Facility XR HIPS BILATERAL WITH PELVI S 3-4 VIEWSon 07-14-2024 XR HIPS BILATERAL WITH PELVIS 3-4 VIEWS AP pelvis and lateral radiographic views were obtained and reviewed of the Bilateral hip. These show the presence of total hip arthroplasty. There are no obvious signs of fracture, significant polyethylene wear, radiolucent lines about the prosthesis, subsidence, failure, or other obvious abnormality. Dictated by: WILIAN MAYA on SatJul 14, 2024 10:55:00 AM EST Transcribed by: WILIAN MAYA on SatJul 14, 2024 10:55:00 AM EST Finalized by: WILIAN MAYA on SatJul 14, 2024 10:55:00 AM EST Normal [facility] Comment on above: Order Comment: Injur y/Trauma or Illness?:Injury/Trauma How long have you had these symptoms (acute/chronic)?:Acute Reason for exam?:- History of cancer?:no Surgeries, chemotherapy, or radiation?:no Type of Exam?:Subsequent/Follow-up Mechanism of injury?:- CBC W/Diff, Automatedon 05-17 Absolute Lymph 1.44 X10 3/uL Normal 0.83-4.51 [facility] Comment on above: Performed By: #### L 500.4050, L500.4100, L501.9910, L100.0100 #### [facility] [address] [place], [place], [id number] (948 Absolute Neut 5.4 X10 3/uL Normal 2.0-7.7 [facility] Comment on above: Performed By: #### L 500.4050, L500.4100, L501.9910, L100.0100 #### [facility] [address] [place], [address] Basophils/100 WBC (Bld) 0.4 % Normal 0-1 [facility] Comment on above: Performed By: #### L 500.4050, L500.4100, L501.9910, L100.0100 #### [facility] [address] [place], [address] Eosinophils/100 WBC (Bld) 4.3 % Normal 0-5 [facility] Comment on above: Performed By: #### L 500.4050, L500.4100, L501.9910, L100.0100 #### [facility] [address] [place], [address] Erythrocyte distribution width (RBC) [Ratio] 12.8 % Normal 11.6-14.6 [facility] Comment on above: Performed By: #### L 500.4050, L500.4100, L501.9910, L100.0100 #### [facility] [address] [place], [address] Hematocrit (Bld) [Volume fraction] 46.6 % Normal 40-54 [facility] Comment on above: Performed By: #### L 500.4050, L500.4100, L501.9910, L100.0100 #### [facility] [address] [place], [address] Hemoglobin (Bld) [Mass/Vol] 15.2 g/dL Normal 13.0-16.5 [facility] Comment on above: Performed By: #### L 500.4050, L500.4100, L501.9910, L100.0100 #### [facility] [address] [place], [address] IG% 0.700 Normal 0.0-0.9 [facility] Comment on above: Result Comment: IG% - Immature Granulocytes (promyelocytes, myelocytes and metamyelocytes) > 1% indicates that a LEFT SHIFT is Present. Performed By: #### L 500.4050, L500.4100, L501.9910, L100.0100 #### [facility] [address] [place], [address] Lymphocytes/100 WBC (Bld) 17.3 % Low 19-41 [facility] Comment on above: Performed By: #### L 500.4050, L500.4100, L501.9910, L100.0100 #### [facility] [address] [place], [address] MCH (RBC) [Entitic mass] 28.6 pg Normal 27.0-32.0 [facility] Comment on above: Performed By: #### L 500.4050, L500.4100, L501.9910, L100.0100 #### [facility] [address] [place], [address] MCHC (RBC) [Mass/Vol] 32.6 g/dL Normal 32-36 [facility] Comment on above: Performed By: #### L 500.4050, L500.4100, L501.9910, L100.0100 #### [facility] [address] [place], [address] MCV (RBC) [Entitic vol] 87.8 fL Normal 80-[address] [facility] Comment on above: Performed By: #### L 500.4050, L500.4100, L501.9910, L100.0100 #### [facility] [address] [place], [address] Monocytes/100 WBC (Bld) 12.6 % High 0-[address] [facility] Comment on above: Performed By: #### L 500.4050, L500.4100, L501.9910, L100.0100 #### [facility] [address] [place], [address] Neutrophils/100 WBC (Bld) 64.7 % Normal 47-70 [facility] Comment on above: Performed By: #### L 500.4050, L500.4100, L501.9910, L100.0100 #### [facility] [address] [place], [address] Nucleated RBC (Bld) [#/Vol] 0 10*3/uL Normal 0-5 [facility] Comment on above: Performed By: #### L 500.4050, L500.4100, L501.9910, L100.0100 #### [facility] [address] [place], [address] Platelet mean volume (Bld) [Entitic vol] 9.8 fL Normal 6.2-12.0 [facility] Comment on above: Performed By: #### L 500.4050, L500.4100, L501.9910, L100.0100 #### [facility] [address] [place], [address] Platelets (Bld) [#/Vol] 237 10*3/uL Normal 150-450 [facility] Comment on above: Performed By: #### L 500.4050, L500.4100, L501.9910, L100.0100 #### [facility] [address] [place], [address] RBC (Bld) [#/Vol] 5.31 10*6/uL Normal 4.6-6.2 [facility] Comment on above: Performed By: #### L 500.4050, L500.4100, L501.9910, L100.0100 #### [facility] [address] [place], [address] RDW SD 41.1 fl Normal 35.1-43.9 [facility] Comment on above: Performed By: #### L 500.4050, L500.4100, L501.9910, L100.0100 #### [facility] [address] [place], [address] WBC (Bld) [#/Vol] 8.3 10*3/uL Normal 4.4-11.0 [facility] Comment on above: Performed By: #### L 500.4050, L500.4100, L501.9910, L100.0100 #### [facility] [address] [place], [address] [facility] Albumin [Mass/Vol] 4.0 g/dL Normal 3.2-5.0 [facility] Comment on above: Performed By: #### L 500.4050, L500.4100, L501.9910, L100.0100 #### [facility] [address] [place], [address] Albumin/Globulin [Mass ratio] 1.1 {ratio} Normal 0.9-2.4 [facility] Comment on above: Performed By: #### L 500.4050, L500.4100, L501.9910, L100.0100 #### [facility] [address] [place], [address] ALK P 83 U/L Normal 45-117 [facility] Comment on above: Performed By: #### L 500.4050, L500.4100, L501.9910, L100.0100 #### [facility] [address] [place], [address] ALT [Catalytic activity/Vol] 26 U/L Normal 16-61 [facility] Comment on above: Performed By: #### L 500.4050, L500.4100, L501.9910, L100.0100 #### [facility] [address] [place], [address] AST [Catalytic activity/Vol] 17 U/L Normal 15-37 [facility] Comment on above: Performed By: #### L 500.4050, L500.4100, L501.9910, L100.0100 #### [facility] [address] [place], [address] Bilirubin [Mass/Vol] 0.50 mg/dL Normal 0.20-1.00 [facility] Comment on above: Result Comment: For patients on eltrombopag therapy, use of Dimension [place] TBIL is not recommended. Performed By: #### L 500.4050, L500.4100, L501.9910, L100.0100 #### [facility] [address] [place], [address] BUN/CRE 12.9 RATIO Normal 10-20 [facility] Comment on above: Performed By: #### L 500.4050, L500.4100, L501.9910, L100.0100 #### [facility] [address] [place], [address] CA,Total 9.1 mg/dL Normal 8.5-10.1 [facility] Comment on above: Performed By: #### L 500.4050, L500.4100, L501.9910, L100.0100 #### [facility] [address] [place], [address] Chloride [Moles/Vol] 103 mmol/L Normal 98-107 [facility] Comment on above: Performed By: #### L 500.4050, L500.4100, L501.9910, L100.0100 #### [facility] [address] [place], [address] CO2 [Moles/Vol] 26.0 mmol/L Normal 21.0-32.0 [facility] Comment on above: Performed By: #### L 500.4050, L500.4100, L501.9910, L100.0100 #### [facility] [address] [place], [address] Creatinine [Mass/Vol] 0.85 mg/dL Normal 0.70-1.30 [facility] Comment on above: Result Comment: The validity of the calculated GFR GFRAA in patients over 70 years has not been determined. Clinical correlation is essential. Performed By: #### L 500.4050, L500.4100, L501.9910, L100.0100 #### [facility] [address] [place], [address] EST GFR - AA 118 mL/min Normal >60 [facility] Comment on above: Result Comment: Afri can Anguillan GFR Calc Performed By: #### L 500.4050, L500.4100, L501.9910, L100.0100 #### [facility] [address] [place], [address] GAP 7 Normal 5-15 [facility] Comment on above: Performed By: #### L 500.4050, L500.4100, L501.9910, L100.0100 #### [facility] [address] [place], [address] GFR/1.73 sq M.predicted among non-blacks MDRD (S/P/Bld) [Vol rate/Area] 97 mL/min/{1.73_m2} Normal >60 [facility] Comment on above: Result Comment: Non- GFR Calc Performed By: #### L 500.4050, L500.4100, L501.9910, L100.0100 #### [facility] [address] [place], [address] Globulin (S) [Mass/Vol] 3.5 g/dL Normal 2.2-4.[address] [facility] Comment on above: Performed By: #### L 500.4050, L500.4100, L501.9910, L100.0100 #### [facility] [address] [place], [address] Glucose [Mass/Vol] 105 mg/dL Normal 74-106 [facility] Comment on above: Result Comment: Fast ing Glucose result from 100 to 125 mg/dL suggests IMPAIRED HOMEOSTASIS per A.D.A. criteria. Performed By: #### L 500.4050, L500.4100, L501.9910, L100.0100 #### [facility] [address] [place], [address] Potassium [Moles/Vol] 4.5 mmol/L Normal 3.5-5.1 [facility] Comment on above: Performed By: #### L 500.4050, L500.4100, L501.9910, L100.0100 #### [facility] [address] [place], [address] Sodium [Moles/Vol] 136 mmol/L Normal 136-145 [facility] Comment on above: Performed By: #### L 500.4050, L500.4100, L501.9910, L100.0100 #### [facility] [address] [place], [address] T PROT 7.5 g/dL Normal 6.4-8.2 [facility] Comment on above: Performed By: #### L 500.4050, L500.4100, L501.9910, L100.0100 #### [facility] [address] [place], [address] Urea nitrogen [Mass/Vol] 11 mg/dL Normal 7-18 [facility] Comment on above: Performed By: #### L 500.4050, L500.4100, L501.9910, L100.0100 #### [facility] [address] [place], [address] Internal Medicine Office Vis ipero 06-03-2024 Internal Medicine Office Visit [facility] [address] [place] [address] OFFICE VISIT Date of Service: 06/03/24 MR#: [id number] Acct: [id number] Name: TYRESE SCHAEFER Rep #: [id number] : 1965 Provider: Dr. 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 Dulce Franks MD) Localized swelling, mass and lump, neck Trochanteric bursitis, right hip Preventative health care Hearing problem Chronic headaches Knee pain Arthritis Surgical History History of lymph node biopsy Hx of cholecystectomy History of hip replacement Family History Mother Arthritis Hypertension Melanoma Son Melanoma Son Melanoma Other Diabetes Osteoarthritis Social History Smoking Status: Never smoker alcohol intake: current alcohol intake frequency: holidays/special occasions only Alcohol type: beer and wine substance use type: does not use what type of physical activity do you participate in: other frequency: daily HPI HPI Chief Complaint: 1 YR FU Details: TYRESE SCHAEFER, is a 59 M who presents to the office today for his yearly visit/follow-up. Also has some concerns. No significant change in personal history. Mother recently after a year of dementia. Not sure if it was vascular or Alzheimer's type dementia. History of hypertension, blood pressure today at 126/70 mmHg with a slightly elevated heart rate which is not typical. He states that he has had a rather stressful morning and did not have a good night rest. Reports compliance with his medication and blood pressure at home said to average 120s over 70s. He stays active. Currently at a BMI of 29.2. No tobacco or alcohol abuse. History of localized neck swelling status post surgery a few years ago. Benign lymph node. Over the last year, he has noted an area of swelling which is occasionally tender. No difficulty swallowing or pressure symptoms reported. ROS Const Constitutional: No body ache, chills, excessive sweating, fatigue, fever(s), frequent falls, headache(s), snoring, weakness or change in appetite Eyes Eyes: No blurry vision, change in vision, floaters, visual disturbances, eye pain or Light sensitivity ENT ENT: No abnormal hearing, ear or mastoid pain, tinnitus, balance problems, nosebleed/epistaxis, nasal congestion, headache(s), neck pain or sore throat Resp Respiratory: No cough, excessive phlegm production, pain on inspiration, shortness of breath, snoring or wheezing Cardio Cardiology: No chest pain at rest, chest pain with exertion, excessive sweating, dyspnea on exertion, lightheadedness, orthopnea or palpitations Gastro GI: No abdominal pain, change in bowel habits, constipation, cramping, diarrhea, nausea/dyspepsia or vomiting Genitourinary Male: No burning urination, painful urination, urinary incontinence or urinary frequency Musc Musculoskeletal: No abnormal gait, joint pain, back pain, limited range of motion, muscle weakness, neck pain or numbness Skin Skin: No dry skin, redness, excessive hair growth, yellowing of the eye, lesions, itchy eyes, rash or wounds Neuro Neurology: No abnormal gait, abnormal hearing, behavioral changes, unsteady gait/balance, weakness, frequent falls, headache(s), memory loss, numbness or visual disturbances Psych Psychiatric: No anxiety, No behavioral changes, No change in appetite, No depression, No memory loss and No Thoughts of harming yourself/Others Endo Endocrine: No cold intolerance, excessive sweating, fatigue, flushing, heat intolerance, increased thirst/drinking or increased hunger Aller/Imm Allergy/Immunologic: No itchy eyes, seasonal allergy symptoms, hives or wheezing Malachi/Lymp Hematologic/Lymphati c: No easy bleeding or easy bruising Exam Const General: cooperative, comfortable and no acute distress Orientation: alert, awake and orie (more content not included)... Normal [facility] Lipid Profileon 06-03-2024 Cholesterol [Mass/Vol] 177 mg/dL Normal 200 [facility] Comment on above: Result Comment: <200 mg/dL Desirable 200-240 mg/dL Borderline >240 mg/dL High Risk Performed By: #### L 500.4050, L500.4100, L501.9910, L100.0100 #### [facility] [address] [place], [address] Cholesterol in HDL [Mass/Vol] 51 mg/dL Normal [facility] Comment on above: Result Comment: The drugs N-Acetylcysteine and Metamizole may falsely depress this assay. Reference Range HDL <40 mg/dL Low HDL Cholesterol HDL >or= 60 mg/dL High HDL Cholesterol Performed By: #### L 500.4050, L500.4100, L501.9910, L100.0100 #### [facility] [address] [place], [address] Cholesterol in LDL [Mass/Vol] 112 mg/dL Normal 0-130 [facility] Comment on above: Performed By: #### L 500.4050, L500.4100, L501.9910, L100.0100 #### [facility] [address] [place], [address] Cholesterol in VLDL [Mass/Vol] 14 mg/dL Normal 5-40 [facility] Comment on above: Performed By: #### L 500.4050, L500.4100, L501.9910, L100.0100 #### [facility] [address] [place], [address] Triglyceride [Mass/Vol] 72 mg/dL Normal [facility] Comment on above: Result Comment: The drugs N-Acetylcysteine and Metamizole may falsely depress this assay. Serum Triglycerides Reference Interval Normal <150 mg/dL Borderline high 150 - 199 mg/dL High 200 - 499 mg/dL Very High > or = 500 mg/dL Performed By: #### L 500.4050, L500.4100, L501.9910, L100.0100 #### [facility] [address] [place], [place], [address] PSA,Total - Annual Screenon 06-03-2024 PSA,TOT SCREEN 1.44 ng/mL Normal 0.00-4.00 [facility] Comment on above: Result Comment: This test was performed using the TPSA assay method for the [employer] chemistry system. Values obtained with different assay methods cannot be used interchangably. When changing PSA assays in the course of monitoring a patient, additional sequential testing should be carried out to confirm baseline values. Performed By: #### L 500.4050, L500.4100, L501.9910, L100.0100 #### [facility] [address] [place], [place], [id number] Absolute lymphocyte countOrd ered By: Dulce Franks on 05-31-2023 Lymphocytes Auto (Unsp spec) [#/Vol] 1.80 10*3/uL 0.83-4.51 [facility] Basophil percentageOrdered B y: Indunori Franks on 05-31-2023 Basophils/100 WBC (Bld) 0.5 % 0-[address] [facility] Bilirubin [Mass/Vol] 0.40 mg/dL 0.20-1.00 [facility] Comment on above: For patients on eltr ombopag therapy, use of Dimension [place] TBIL is not recommended. Chloride [Moles/Vol] 106 mmol/L 98-107 [facility] Cholesterol [Mass/Vol] 179 mg/dL <200 [facility] Comment on above: <200 mg/dL Desirable 200-240 mg/dL Borderline >240 mg/dL High Risk Eosinophils/100 WBC (Bld) 4.2 % 0-5 [facility] Glucose [Mass/Vol] 97 mg/dL 74-106 [facility] Neutrophils (Bld) [#/Vol] 2.9 10*3/uL 2.0-7.7 [facility] Neutrophils/100 WBC (Bld) 50.2 % 47-70 [facility] Potassium [Moles/Vol] 4.3 mmol/L 3.5-5.1 [facility] Protein [Mass/Vol] 7.3 g/dL 6.4-8.2 [facility] Sodium [Moles/Vol] 138 mmol/L 136-145 [facility] Triglyceride [Mass/Vol] 69 mg/dL <199 [facility] Comment on above: The drugs N-Acetylcy steine and Metamizole may falsely depress this assay.Serum Triglycerides Reference Interval Normal <150 mg/dL Borderline high 150 - 199 mg/dL High 200 - 499 mg/dL Very High > or = 500 mg/dL WBC (Bld) [#/Vol] 5.7 10*3/uL 4.4-11.0 [facility] Blood erythrocytes count (nu mber/volume)Ordered By: Dulce Franks on 05-31-2023 RBC (Bld) [#/Vol] 5.28 10*6/uL 4.6-6.2 [facility] Blood hemoglobin measurement (mass/volume)Ordered By: Dulce Franks on 05-31-2023 Hemoglobin (Bld) [Mass/Vol] 15.1 g/dL 13.0-16.5 [facility] Blood lymphocytes/100 leukoc ytesOrdered By: Dulce Franks on 05-31-2023 Lymphocytes/100 WBC (Bld) 31.5 % 19-41 [facility] Blood monocytes/100 leukocyt esOrdered By: Dulce Franks on 05-31-2023 Monocytes/100 WBC (Bld) 13.1 % 0-10 [facility] Blood platelet mean volumeOr dered By: Dulce Franks on 05-31-2023 Platelet mean volume (Bld) [Entitic vol] 10.3 fL 6.2-12.0 [facility] Determination of erythrocyte mean corpuscular volume (MCV)Ordered By: Dulce Franks on 05-31-2023 MCV (RBC) [Entitic vol] 87.9 fL 80-94 [facility] Hematocrit Auto (Bld) [Volum e fraction]Ordered By: Dulce Franks on 05-31-2023 Hematocrit (Bld) [Volume fraction] 46.4 % 40-54 [facility] Laboratory - Chemistry and C hemistry - challengeOrdered By: Dulce Franks on 05-31-2023 ALP [Catalytic activity/Vol] 72 U/L 45-117 [facility] ALT [Catalytic activity/Vol] 23 U/L 16-61 [facility] CO2 [Moles/Vol] 30.0 mmol/L 21.0-32.0 [facility] Globulin (S) [Mass/Vol] 3.4 g/dL 2.2-4.2 [facility] Urea nitrogen/Creatinine [Mass ratio] 17.6 mg/mg 10-20 [facility] Laboratory - Hematology and Cell countsOrdered By: Dulce Franks on 05-31-2023 Erythrocyte distribution width (RBC) [Entitic vol] 43.0 fL 35.1-43.9 [facility] Erythrocyte distribution width (RBC) [Ratio] 13.2 % 11.6-14.6 [facility] Immature granulocytes/100 WBC (Bld) 0.500 % 0.0-0.9 [facility] Comment on above: IG% - Immature Granu locytes (promyelocytes, myelocytes and metamyelocytes) > 1% indicates that a LEFT SHIFT is Present. MCH (RBC) [Entitic mass] 28.6 pg 27.0-32.0 [facility] Nucleated RBC/100 WBC (Bld) [Ratio] 0 % 0-5 [facility] MCHC Auto (RBC) [Mass/Vol]Or dered By: Dulce Franks on 05-31-2023 MCHC (RBC) [Mass/Vol] 32.5 g/dL 32-36 [facility] No Panel InformationOrdered By: Dulce Franks on 05-31-2023 Estimated GFR (MDRD) Amer 110 mL/min >60 [facility] Comment on above: GFR Calc Estimated GFR (MDRD) Non-Af Amer 91 mL/min >60 [facility] Comment on above: Non- GFR Calc Platelets bldOrdered By: Chris Franks on 05-31-2023 Platelets (Bld) [#/Vol] 238 10*3/uL 150-450 [facility] Serum or plasma albumin chiara urement (mass/volume)Ordered By: Induoneliayusufalfredito Trinidadterrysharif on 05-31-2023 Albumin [Mass/Vol] 3.9 g/dL 3.2-5.0 [facility] Serum or plasma albumin/glob ulin mass ratioOrdered By: Dulce Trinidadterrysharif on 05-31-2023 Albumin/Globulin [Mass ratio] 1.1 {ratio} 0.9-2.4 [facility] Serum or plasma calcium chiara urement (mass/volume)Ordered By: Dulce Trinidadterrysharif on 05-31-2023 Calcium [Mass/Vol] 9.2 mg/dL 8.5-10.1 [facility] Serum or plasma cholesterol in HDL measurement (mass/volume)Ordered By: Indunori Trinidadnedra on 05-31-2023 Cholesterol in HDL [Mass/Vol] 48 mg/dL >40 [facility] Comment on above: The drugs N-Acetylcy steine and Metamizole may falsely depress this assay. Reference Range HDL <40 mg/dL Low HDL Cholesterol HDL >or= 60 mg/dL High HDL Cholesterol Serum or plasma cholesterol in VLDL measurement (mass/volume)Ordered By: Dulce Trinidadterrysharif on 05-31-2023 Cholesterol in VLDL [Mass/Vol] 14 mg/dL 5-40 [facility] Serum or plasma creatinine m easurement (mass/volume)Ordered By: Dulce Trinidadterrysharif on 05-31-2023 Creatinine [Mass/Vol] 0.91 mg/dL 0.70-1.30 [facility] Comment on above: The validity of the calculated GFR & GFRAA in patients over 70 years has not been determined. Clinical correlation is essential. Serum or plasma low density lipoprotein (LDL) cholesterol measurement (mass/volume)Ordered By: Dulce Trinidadterrysharif on 05-31-2023 Cholesterol in LDL [Mass/Vol] 117 mg/dL 0-130 [facility] Serum or plasma urea nitroge n measurement (mass/volume)Ordered By: Dulce Trinidadterrysharif on 05-31-2023 Urea nitrogen [Mass/Vol] 16 mg/dL 7-18 [facility] Thin prep Papanicolaou smear with manual screeningOrdered By: Dulce Trinidadnedra on 05-31-2023 Thin prep Papanicolaou smear with manual screening 17 U/L 15-37 [facility] Thin prep Papanicolaou smear with manual screening 2 5-15 [facility] Absolute lymphocyte counton 06-13-2022 Lymphocytes Auto (Unsp spec) [#/Vol] 3.43 10*3/uL 0.83-4.51 [facility] Work Phone: Basophil percentageon 2021 Basophil percentage Not Reportable [facility] Work Phone: Bilirubin [Mass/Vol] 0.20 mg/dL 0.20-1.00 [facility] Work Phone: Comment on above: For patients on eltr ombopag therapy, use of Dimension [place] TBIL is not recommended. Chloride [Moles/Vol] 103 mmol/L 98-107 [facility] Work Phone: Cholesterol [Mass/Vol] 143 mg/dL <200 [facility] Work Phone: Comment on above: <200 mg/dL Desirable 200-240 mg/dL Borderline >240 mg/dL High Risk Glucose [Mass/Vol] 98 mg/dL 74-106 [facility] Work Phone: Neutrophils (Bld) [#/Vol] 8.8 10*3/uL 2.0-7.7 [facility] Work Phone: Potassium [Moles/Vol] 4.0 mmol/L 3.5-5.1 [facility] Work Phone: Protein [Mass/Vol] 7.1 g/dL 6.4-8.2 [facility] Work Phone: Sodium [Moles/Vol] 140 mmol/L 136-145 [facility] Work Phone: Triglyceride [Mass/Vol] 88 mg/dL <[address] [facility] Work Phone: Comment on above: The drugs N-Acetylcy steine and Metamizole may falsely depress this assay.Serum Triglycerides Reference Interval Normal <150 mg/dL Borderline high 150 - 199 mg/dL High 200 - 499 mg/dL Very High > or = 500 mg/dL WBC (Bld) [#/Vol] 13.2 10*3/uL 4.4-11.0 [facility] Work Phone: Blood erythrocytes count (nu mber/volume)on 06-13-2022 RBC (Bld) [#/Vol] 4.82 10*6/uL 4.6-6.2 [facility] Work Phone: Blood hemoglobin measurement (mass/volume)on 06-13-2022 Hemoglobin (Bld) [Mass/Vol] 14.4 g/dL 13.0-16.5 [facility] Work Phone: Blood lymphocytes/100 leukoc yteson 06-13-2022 Lymphocytes/100 WBC (Bld) 26 % 19-41 [facility] Work Phone: Blood monocytes/100 leukocyt eson 06-13-2022 Monocytes/100 WBC (Bld) 6 % 0-10 [facility] Work Phone: Blood platelet adequacy dete ction by light microscopyon 06-13-2022 Platelets LM Ql (Bld) ADEQUATE ADEQ [facility] Work Phone: Blood platelet mean volumeon 06-13-2022 Platelet mean volume (Bld) [Entitic vol] 9.3 fL 6.2-12.0 [facility] Work Phone: Blood segmented neutrophils/ 100 leukocyteson 06-13-2022 Segmented neutrophils/100 WBC (Bld) 67 % 47-70 [facility] Work Phone: Determination of erythrocyte mean corpuscular volume (MCV)on 06-13-2022 MCV (RBC) [Entitic vol] 88.4 fL 80-94 [facility] Work Phone: Hematocrit Auto (Bld) [Volum e fraction]on 06-13-2022 Hematocrit (Bld) [Volume fraction] 42.6 % 40-54 [facility] Work Phone: Laboratory - Chemistry and C hemistry - challengeon 06-13-2022 ALP [Catalytic activity/Vol] 67 U/L 45-117 [facility] Work Phone: ALT [Catalytic activity/Vol] 32 U/L 16-61 [facility] Work Phone: CO2 [Moles/Vol] 31.0 mmol/L 21.0-32.0 [facility] Work Phone: Globulin (S) [Mass/Vol] 3.5 g/dL 2.2-4.2 [facility] Work Phone: Urea nitrogen/Creatinine [Mass ratio] 19.7 mg/mg 10-20 [facility] Work Phone: Laboratory - Hematology and Cell countson 06-13-2022 Erythrocyte distribution width (RBC) [Entitic vol] 43.0 fL 35.1-43.9 [facility] Work Phone: Erythrocyte distribution width (RBC) [Ratio] 13.3 % 11.6-14.6 [facility] Work Phone: MCH (RBC) [Entitic mass] 29.9 pg 27.0-32.0 [facility] Work Phone: Myelocytes/100 WBC (Bld) 1 % 0-0 [facility] Work Phone: MCHC Auto (RBC) [Mass/Vol]on 06-13-2022 MCHC (RBC) [Mass/Vol] 33.8 g/dL 32-36 [facility] Work Phone: No Panel Informationon 06-13 Estimated GFR (MDRD) Amer 109 mL/min >60 [facility] Work Phone: Comment on above: GFR Calc Estimated GFR (MDRD) Non-Af Amer 90 mL/min >60 [facility] Work Phone: Comment on above: Non- GFR Calc Prostate Specific Antigen Screen 1.06 ng/mL 0.00-4.00 [facility] Work Phone: Comment on above: This test was perfor med using the TPSA assay method for the[employer] chemistry system. Values obtained with differentassay methods cannot be used interchangably.When changing PSA assays in the course of monitoring apatient, additional sequential testing should be carriedout to confirm baseline values. Platelets bldon 06-13-2022 Platelets (Bld) [#/Vol] 314 10*3/uL 150-450 [facility] Work Phone: RBC morphologyon 06-13-2022 RBC morphology finding Nom (Bld) NORM C+C NORMAL NORM C&C [facility] Work Phone: Review by pathologiston 05-18 Pathologist review Everardo (Unsp spec) [Interp] Reviewed [facility] Work Phone: Comment on above: Previous reported re sult: Malaika valenzuela Edited by: BHAVANA on 06/14/22:1225Leukocytosis with Neutrophilic left shift. Clinical correlation necessary.Mayank Mak M.D. 06/14/22 AMENDED REPORT 06/14/22 1225 PATH REV previously reported as: Malaika valenzuela Serum or plasma albumin chiara urement (mass/volume)on 06-13-2022 Albumin [Mass/Vol] 3.6 g/dL 3.2-5.0 [facility] Work Phone: Serum or plasma albumin/glob ulin mass ratioon 06-13-2022 Albumin/Globulin [Mass ratio] 1.0 {ratio} 0.9-2.4 [facility] Work Phone: Serum or plasma calcium chiara urement (mass/volume)on 06-13-2022 Calcium [Mass/Vol] 9.0 mg/dL 8.5-10.1 [facility] Work Phone: Serum or plasma cholesterol in HDL measurement (mass/volume)on 06-13-2022 Cholesterol in HDL [Mass/Vol] 64 mg/dL >40 [facility] Work Phone: Comment on above: The drugs N-Acetylcy steine and Metamizole may falsely depress this assay. Reference Range HDL <40 mg/dL Low HDL Cholesterol HDL >or= 60 mg/dL High HDL Cholesterol Serum or plasma cholesterol in VLDL measurement (mass/volume)on 06-13-2022 Cholesterol in VLDL [Mass/Vol] 18 mg/dL 5-40 [facility] Work Phone: Serum or plasma creatinine m easurement (mass/volume)on 06-13-2022 Creatinine [Mass/Vol] 0.91 mg/dL 0.70-1.30 [facility] Work Phone: Comment on above: The validity of the calculated GFR & GFRAA in patients over 70 years has not been determined. Clinical correlation is essential. Serum or plasma low density lipoprotein (LDL) cholesterol measurement (mass/volume)on 06-13-2022 Cholesterol in LDL [Mass/Vol] 61 mg/dL 0-130 [facility] Work Phone: Serum or plasma urea nitroge n measurement (mass/volume)on 06-13-2022 Urea nitrogen [Mass/Vol] 18 mg/dL 7-18 [facility] Work Phone: Thin prep Papanicolaou smear with manual screeningon 06-13-2022 Thin prep Papanicolaou smear with manual screening 18 U/L 15-37 [facility] Work Phone: Thin prep Papanicolaou smear with manual screening 6 5-15 [facility] Work Phone: Total cell counton 2 Cells counted Molgen (Bld/Tiss) [#] 100 MANUAL DIFF [facility] Work Phone: HIP RT 2 OR 3 VIEWSon 2021 HIP RT 2 OR 3 VIEWS IMAGES REVIEWED: HIP RT 2 OR 3 VIEWS COMPARISON: 04/10/2016. CLINICAL INDICATION: Acute right hip pain, no known injury. FINDINGS/IMPRESSION: 1. Right hip arthroplasty without evidence of complication. 2. No evidence of acute osseous abnormality of the right hip. Normal [facility] Vital Signs Date Time Vital Sign Value Performing Clinician Facility 07-14-2024 10:21-0500 Body height 177.8 cm Wilian Maya MD Work Phone: [facility] 07-14-2024 10:21-0500 Body mass index (BMI) [Ratio] 28.9 kg/m2 Wilian Maya MD Work Phone: [facility] 07-14-2024 10:21-0500 Body weight 91.35 kg Wilian Maya MD Work Phone: [facility] 07-02-2023 10:07-0500 Body mass index (BMI) [Ratio] 29.7 kg/m2 Wilian Maya MD Work Phone: [facility] 07-02-2023 10:07-0500 Body weight 93.89 kg Wilian Maya MD Work Phone: [facility] 05-31-2023 08:51-0500 Body height 177.[address] Dulce Franks Work Phone: [facility] 05-31-2023 08:51-0500 Body mass index (BMI) [Ratio] 29.1 kg/m2 Dr. Dulce Franks Work Phone: [facility] 05-31-2023 08:51-0500 Body temperature 97.3 [degF] Dr. Dulce Franks Work Phone: [facility] 05-31-2023 08:51-0500 Body weight 92.[address] Dulce Franks Work Phone: [facility] 05-31-2023 08:51-0500 Diastolic blood pressure 78 mm[Hg] Dr. Dulce Franks Work Phone: [facility] 05-31-2023 08:51-0500 Heart rate 67 /min Dr. Dulce Franks Work Phone: [facility] 05-31-2023 08:51-0500 Respiratory rate 16 /min Dr. Dulce Franks Work Phone: [facility] 12-15-2023 08:51-0500 SaO2% (BldA) [Mass fraction] 99 % Dr. Dulce Franks Work Phone: [facility] 05-31-2023 08:51-0500 Systolic blood pressure 118 mm[Hg] Dr. Dulce Franks Work Phone: [facility] 06-26-2022 10:11-0500 Body height 177.8 cm Wilian Maya MD Work Phone: [facility] 06-26-2022 10:11-0500 Body mass index (BMI) [Ratio] 27.84 kg/m2 Wilian Maya MD Work Phone: [facility] 06-26-2022 10:11-0500 Body weight 88 kg Wilian Maya MD Work Phone: [facility] 06-13-2022 08:36-0500 Body height 177.[address] Dulce Franks Work Phone: [facility] Work Phone: 06-13-2022 08:36-0500 Body mass index (BMI) [Ratio] 29.5 kg/m2 Dr. Dulce Franks Work Phone: [facility] Work Phone: 06-13-2022 08:36-0500 Body temperature 97.9 [degF] Dr. Dulce Franks Work Phone: [facility] Work Phone: 06-13-2022 08:36-0500 Body weight 93.[address] Dulce Franks Work Phone: [facility] Work Phone: 06-13-2022 08:36-0500 Diastolic blood pressure 84 mm[Hg] Dr. Dulce Franks Work Phone: [facility] Work Phone: 06-13-2022 08:36-0500 Heart rate 81 /min Dr. Dulce Franks Work Phone: [facility] Work Phone: 06-13-2022 08:36-0500 Respiratory rate 14 /min Dr. Dulce Franks Work Phone: [facility] Work Phone: 06-13-2022 08:36-0500 SaO2% (BldA) [Mass fraction] 98 % Dr. Dulce Franks Work Phone: [facility] Work Phone: 06-13-2022 08:36-0500 Systolic blood pressure 132 mm[Hg] Dr. Dulce Franks Work Phone: [facility] Work Phone: Encounters Encounter Date Encounter Type Care Provider Facility Start: 07-14-2024 End: 07-14-2024 Office outpatient visit 15 minutes Wilian Maya MD Work Phone: [facility] Comment on above: History of total hip arthroplasty, bilateral (Primary Dx) Start: 07-14-2024 End: 07-18-2024 ambulatory [facility] Start: 06-30-2024 Encounter for genera l adult medical examination without abnormal findings [facility] Start: 06-03-2024 End: 06-03-2024 ambulatory [facility] Facility[facility] Start: 06-03-2024 End: 06-03-2024 ambulatory [facility] Facility:[facility] Start: 07-02-2023 End: 07-02-2023 Office outpatient visit 15 minutes Wilian Maya MD Work Phone: [facility] Comment on above: History of total hip arthroplasty, bilateral (Primary Dx) Start: 05-31-2023 End: 05-31-[address] Dulce Franks Work Phone: [facility] Work Phone: Start: 05-31-2023 End: 05-31-2023 Encounter for general adult medical examination without abnormal findings Dr. Dulce Franks Work Phone: [facility] Start: 05-31-2023 End: 05-31-[address] Dulce Franks Work Phone: [facility] Work Phone: Start: 06-26-2022 End: 06-26-2022 Office outpatient visit 15 minutes Wilian Maya MD Work Phone: [facility] Comment on above: Status post bilatera l hip replacements (Primary Dx) Start: 06-13-2022 End: 06-13-[address] Dulce Franks Work Phone: [facility] Work Phone: Start: 06-13-[address] Sharif Franks Work Phone: [facility] Start: 06-13-2022 End: 06-13-2022 Encounter for general adult medical examination without abnormal findings Dr. Dulce Franks Work Phone: [facility] Start: 06-13-2022 End: 06-13-[address] Dulce Franks Work Phone: [facility] Procedures Date Procedure Procedure Detail Performing Clinician Start: 07-14-2024 Follow-up visit Follow-up WILIAN MAYA Start: 06-01-2019 Colonoscopy Wilian gilbert MD Work Phone: Plan of Treatment Date Care Activity Detail Author Start: 2039 Respiratory Syncytial Virus Immunization: Risk, 60-74 Risk, or 75+ (1 - 1-dose 75+ series) Respiratory Syncytial Virus Immunization: Risk, 60-74 Risk, or 75+ (1 - 1-dose 75+ series) [facility] Start: 06-01-2029 Screening for malignant neoplasm of colon [facility] Start: 07-13-2025 End: 07-13-2025 Patient encounter procedure 07/13/2025 10:30 AM EST Office Visit [facility] [address] [place] [address] Wilian Maya MD [address] [place] [id number] [facility] Start: 07-14-2024 End: 07-14-2024 Patient encounter procedure 07/14/2024 10:30 AM EST Office Visit [facility] [address] [place] [id number] Wilian Maya MD [address] [place] [id number] [facility] Start: 02-16-2024 COVID-19 Vaccine ( season) COVID-19 Vaccine () [facility] Start: 02-16-2024 Influenza vaccination Influenza Vaccine (#1) [facility] Start: 07-02-2023 End: 07-02-2023 Patient encounter procedure 07/02/2023 Office Visit Orthopedic Surgery Wilian Maya MD [address] [place] [id number] [facility] Start: 06-13-2023 History and physical examination, annual for health maintenance Wellness Visit [facility] Start: 02-15-2023 COVID-19 Vaccine ( season) COVID-19 Vaccine ( season) [facility] Start: 02-15-2023 Influenza vaccination Sequential Influenza Vaccine (#1) [facility] Start: 02-15-2022 Influenza vaccination Sequential Influenza Vaccine (#1) [facility] Start: 12-06-2020 COVID-19 Vaccine (3 - Booster for Moderna series) COVID-19 Vaccine (3 - Booster for Moderna series) [facility] Start: 2014 Administration of herpes zoster vaccine Zoster Vaccines (1 of 2) [facility] Start: 2014 Pneumococcal Vaccine: Age 50+ (1 of 1 - PCV) Pneumococcal Vaccine: Age 50+ (1 of 1 - PCV) [facility] Start: 2014 Screening for malignant neoplasm of colon Flexible sigmoidoscopy [facility] Start: 1982 Hepatitis C screening Hepatitis C Screening [facility] Start: 1979 HIV screening HIV Screening [facility] Start: 1976 Depression screening using PHQ-9 (Patient Health Questionnaire 9) score [facility] Start: 1967 History and physical examination, annual for health maintenance Wellness Visit [facility] Start: 1964 Prostate specific antigen measurement PSA Level [facility] Start: 1964 Screening for malignant neoplasm of colon [facility] Start: 1964 Tetanus vaccination Tetanus: Every 10yrs [facility] Prostate specific an tigen measurement [facility] Payers Date Payer Category Payer Self-pay [id number] 2021 Managed Care PPO (unspecified) [employer] PPO [id number] 2021 Unknown MMO [employer] S [employer]PER[employer] PPO [id number] 2021-Present [phone] [address] [place] [address] [id number] 2021 Unknown [id number] 1965 Unknown [id number] 1965 Unknown [id number] Unknown OMI [id number] Unknown [id number] Unknown [id number] Social History Date Type Detail Facility Start: 06-13-2022 End: 05-31-2023 Tobacco smoking status NHIS Unknown if ever smoked [facility] Start: 05-29-2019 Non-smoker [facility] Start: 1965 Sex Assigned At Male [facility] Start: 04-10-2016 [facility] Start: 06-26-2022 End: 07-14-2024 Alcohol intake Current non-drinker of alcohol (finding) [facility] Start: 1965 Sex Assigned At Not on file [facility] Start: 06-16-2022 End: 06-26-2022 Exposure to SARS-CoV-2 (event) Not sure [facility] Start: 06-26-2022 End: 07-14-2024 History of Social function [facility] Start: 06-26-2022 End: 07-14-2024 Tobacco use panel [facility] Progress note 07-14-2024 Note Date & Type Note Facility 07-14-2024 Note [facility] [address] [place] [address] Patient Name: Tyrese Schaefer Patient Age: 59 y.o. Patient : 1965 Date: 07/14/24 Progress Note Chief Complaint: Hip Follow Up History of Present Illness: Tyrese Schaefer is a 59 y.o. male who is approximately 24 year(s) out from bilateral hip replacements. The patient is doing well and pain is well controlled. Patient is performing all activities as tolerated with no concerns. Physical Exam: Patient is alert and oriented. Bilateral Hips: Incisions are well healed with no evidence of infection. Pt has painless ROM of the hip bilaterally. No evidence of DVT in either LE. Imaging Studies: XR Hips Bilateral With Pelvis 3-4 Views Result Date: 07/14/2024 AP pelvis and lateral radiographic views were obtained and reviewed of the Bilateral hip. These show the presence of total hip arthroplasty. There are no obvious signs of fracture, significant polyethylene wear, radiolucent lines about the prosthesis, subsidence, failure, or other obvious abnormality. Impression: 1. History of total hip arthroplasty, bilateral Plan: The patient is doing well with no obvious problems with their hip replacements. The patient should continue activities as tolerated. We have discussed not performing impact activities. The patient should continue with non-impact activities such as walking, biking, and swimming. I have encouraged the patient to continue their home exercise program as needed. Patient understands if they have any mild generalized aches or pains they can always use [id number] topical diclofenac or Tylenol. We have discussed the importance of proper dental hygiene and routine cleanings. They do understand to use antibiotic prophylaxis prior to cleanings, which they can obtain by me or their dentist. We will see the patient back in the office in 1 year for routine follow up with xray. I have answered all of the patient's questions and concerns today. I told them if they have any other questions about their care they can give us a call. Radiographs next visit: AP pelvis and right and left lateral, WB Wilian Maya MD 07/14/24 Note: To expedite correspondence this note was generated by [employer] voice recognition software. Some grammatical or spelling errors may occur using the system. AUTHENTICATED BY WILIAN MAYA, ON 07/14/2024 10:55:39 [facility] History of Present illness Narrative 07-14-2024 Wilian Maya MD - 07/14/2024 10:55 AM EST Note Date & Type Note Facility 07-14-2024 History of Presen t illness Narrative [facility] [address] [place] [id number] Patient Name: Tyrese Schaefer Patient Age: 59 y.o. Patient : 1965 Date: 07/14/24 Progress Note Chief Complaint: Hip Follow Up History of Present Illness: Tyrese Schaefer is a 59 y.o. male who is approximately 24 year(s) out from bilateral hip replacements. The patient is doing well and pain is well controlled. Patient is performing all activities as tolerated with no concerns. Physical Exam: Patient is alert and oriented. Bilateral Hips: Incisions are well healed with no evidence of infection. Pt has painless ROM of the hip bilaterally. No evidence of DVT in either LE. Imaging Studies: XR Hips Bilateral With Pelvis 3-4 Views Result Date: 07/14/2024 AP pelvis and lateral radiographic views were obtained and reviewed of the Bilateral hip. These show the presence of total hip arthroplasty. There are no obvious signs of fracture, significant polyethylene wear, radiolucent lines about the prosthesis, subsidence, failure, or other obvious abnormality. Impression: 1. History of total hip arthroplasty, bilateral Plan: The patient is doing well with no obvious problems with their hip replacements. The patient should continue activities as tolerated. We have discussed not performing impact activities. The patient should continue with non-impact activities such as walking, biking, and swimming. I have encouraged the patient to continue their home exercise program as needed. Patient understands if they have any mild generalized aches or pains they can always use [id number] topical diclofenac or Tylenol. We have discussed the importance of proper dental hygiene and routine cleanings. They do understand to use antibiotic prophylaxis prior to cleanings, which they can obtain by me or their dentist. We will see the patient back in the office in 1 year for routine follow up with xray. I have answered all of the patient's questions and concerns today. I told them if they have any other questions about their care they can give us a call. Radiographs next visit: AP pelvis and right and left lateral, WB Wilian Maya MD 07/14/24 Note: To expedite correspondence this note was generated by [employer] voice recognition software. Some grammatical or spelling errors may occur using the system. documented in this encounter [facility] History of Present illness Narrative 07-02-2023 Wilian Maya MD - 07/02/2023 10:29 AM EST Note Date & Type Note Facility 07-02-2023 History of Presen t illness Narrative [facility] [address] [place] [address] Patient Name: Tyrese Schaefer Patient Age: 58 y.o. Patient : 1965 Date: 07/02/23 Progress Note Chief Complaint: Hip Follow Up History of Present Illness: Tyrese Schaefer is a 58 y.o. male who is approximately 23 year(s) out from bilateral hip replacements. The patient is doing well and pain is well controlled. Patient is performing all activities as tolerated with no concerns. Physical Exam: Patient is alert and oriented. Bilateral Hips: Incisions are well healed with no evidence of infection. Pt has painless ROM of the hip bilaterally. No evidence of DVT in either LE. Imaging Studies: XR Hips Bilateral With Pelvis 3-4 Views Result Date: 07/02/2023 AP pelvis and lateral radiographic views were obtained and reviewed of the Bilateral hip. These show the presence of total hip arthroplasty. There are no obvious signs of fracture, significant polyethylene wear, radiolucent lines about the prosthesis, subsidence, failure, or other obvious abnormality. Impression: 1. History of total hip arthroplasty, bilateral Plan: The patient is doing well with no obvious problems with their hip replacements. The patient should continue activities as tolerated. We have discussed not performing impact activities. The patient should continue with non-impact activities such as walking, biking, and swimming. I have encouraged the patient to continue their home exercise program as needed. Patient understands if they have any mild generalized aches or pains they can always use [id number] topical diclofenac or Tylenol. We have discussed the importance of proper dental hygiene and routine cleanings. They do understand to use antibiotic prophylaxis prior to cleanings, which they can obtain by me or their dentist. We will see the patient back in the office in 1 year for routine follow up with xray. I have answered all of the patient's questions and concerns today. I told them if they have any other questions about their care they can give us a call. Radiographs next visit: AP pelvis and right and left lateral, WB Wilian Maya MD 07/02/23 Note: To expedite correspondence this note was generated by [employer] recognition software. Some grammatical or spelling errors may occur using the system. documented in this encounter [facility] History of Present illness Narrative 06-26-2022 Jhonny Villatoro PA-C - 06/26/2022 11:21 AM EST Note Date & Type Note Facility 06-26-2022 History of Presen t illness Narrative [facility] [address] [address] Patient Name: Tyrese Schaefer Patient Age: 57 y.o. Patient : 1965 Date: 06/26/22 Progress Note Follow Up Visit Chief Complaint: Chief Complaint Patient presents with Right Hip - Pain Follow-up Patient is having some left hip bursitis, History of Present Illness: Tyrese Schaefer is a 57 y.o. male who underwent total hip arthroplasties approximately 20 and 22 years ago. We have not seen him since 2015. He returns to the office today due to an increase in pain he had around Ju time. He was seen at an urgent care approximately 2 weeks ago at which time he was started on baclofen and given a right trochanteric bursa cortisone injection. He states that this did help and his pain has calm down some however he still having radiating pain down his right lower extremity. He denies any nausea, vomiting fever or chills. Review of Systems: Review of Systems Constitutional: Negative for chills and fever. HENT: Negative for dental problem. Respiratory: Negative for shortness of breath. Cardiovascular: Negative for chest pain and leg swelling. Gastrointestinal: Negative for vomiting. Musculoskeletal: Positive for arthralgias and gait problem. Negative for joint swelling. Skin: Negative for color change. Neurological: Negative for numbness. Hematological: Does not bruise/bleed easily. Psychiatric/Behavioral: The patient is not nervous/anxious. Physical Exam: Ht 5' 10 Wt 88 kg (194 lb) BMI 27.84 kg/m General: alert, appears stated age, and cooperative Wound: Wound clean and dry no evidence of infection. Hip ROM: Flexion 100, External rotation 30, and Internal rotation 25 DVT Exam: No evidence of DVT seen on physical exam. Negative Antoni's sign. The following portions of the patient's history were reviewed and updated as appropriate: allergies, current medications, past family history, past medical history, past social history, past surgical history, and problem list. Xrays: XR Hips Bilateral With Pelvis 3-4 Views Result Date: 06/26/2022 AP pelvis and lateral radiographic views were obtained and reviewed of the Bilateral hip. These show the presence of total hip arthroplasty. There are no obvious signs of fracture, significant polyethylene wear, radiolucent lines about the prosthesis, subsidence, failure, or other obvious abnormality. Plan: 1. Status post bilateral hip replacements No orders of the defined types were placed in this encounter. Return for Recheck, x-rays. Narrative: We do long discussion in the office today with Rja regards to his right hip. Clinically does have right greater trochanteric bursitis. Overall his x-rays look good with his bilateral total hip arthroplasties. These are approximately 20 and 22 years old. He has gotten some relief from the right greater trochanteric cortisone injection and hopefully this will continue to kick in and calm this down. We did discuss his low back as well with some of his symptomatology. However at this point he wants to continue with conservative modalities. We will see how he does with the injection. We did discuss we would like to follow him on an annual basis as he is over 20 years out on his bilateral total hip arthroplasties. He voiced understanding this. We will see him back next year for follow-up appointment. He was told to contact our office if he has any questions or concerns or he feels like the cortisone injection is not helping anymore. He voiced understanding of Patient was seen and examined by Dr. Maya who is in agreement with this plan Jhonny Villatoro PA-C Note: To expedite correspondence this note was generated by [employer] voice recognition software. Some grammatical or spelling errors may occur using the system. documented in this encounter [facility] Evaluation note Note Date & Type Note Facility Evaluation note Diagnosis Onset Date Preventative health care acu te Trochanteric bursitis, right hip acute Hypertension [facility] Work Phone: Evaluation note Note Date & Type Note Facility Evaluation note Diagnosis Status post bilateral hip replacements- Primary Hip joint replacement by other means documented in this encounter [facility] Evaluation note Note Date & Type Note Facility Evaluation note Diagnosis Onset Date Preventative health care acu te Hypertension chronic [facility] Work Phone: Evaluation note Note Date & Type Note Facility Evaluation note Diagnosis History of total hip arthroplasty, bilateral- Primary documented in this encounter [facility] Evaluation note Note Date & Type Note Facility Evaluation note Diagnosis History of total hip arthroplasty, bilateral- Primary documented in this encounter [facility] Summary Purpose Family History No Family History Records Found Relationship Condition Age at Onset Recorded Date/T elena Not Specified Diabetes mellitus Unknown Osteoarthritis Unknown mother Arthritis Unknown Hypertension Unknown Malignant melanoma Unknown son Malignant melanoma Unknown Advance Directives No Advanced Directives Records Found Advance Directive Response Recorded Date/ Time Living Will No June 03 020 8:38am Power of Wildlife Removal Specialist No June 03, 2020 8:38am Chief Complaint and Reason for Visit Chief Complaint 1 Y FU Reason for Visit Preventative health care Trochanteric bursitis, right hip Hypertension Chief Complaint 1 Y FU Reason for Visit Preventative health care Hypertension Additional Source Comments (unrecognized sect ion and content) No Status Records FoundNo Status Records FoundNo Status Records Found INFORMATION SOURCE (unrecogn ized section and content) DATE CREATED AUTHOR 06/10/2022 [facility] DATE CREATED AUTHOR AUTHOR'S ORGANIZ ATION 07/03/2024 [facility] DATE CREATED AUTHOR AUTHOR'S ORGANIZ ATION 07/20/2024 [facility]atory Goals (unrecognized section and content) Goals may be documented in a n alternate sectionGoals may be documented in an alternate section Reason for Visit (unrecogniz ed section and content) Reason Comments Pain Follow-up Patient is having so me left hip bursitis, Reason Comments Follow-up F/u b/l GARRETT// Left d one in 1999, Right done 2001. Increase in lateral soreness for the past 6 month, no new CHRISTIAN. Reason Comments Follow-up Follow-up Yearly check for b/l GARRETT , patient notes both hips fees well. Care Teams (unrecognized sec tion and content) [employer] Relationship Specialty Start Date End Date No, Physician [facility] PCP - General 04/10/16 Team Status: Active Member Role Status Dates Dr. Dulec Franks MD Family Provider Active Dr. Dulce Franks MD Primary Care Provider Active Team Status: Inactive Member Role Status Dates Dr. Dulce Franks MD Primary Care Helen kulkarni, Attending Provider, Referring Provider Active [employer] Relationship Specialty Start Date End Date No, Physician [facility] PCP - General 04/10/16 [employer] Relationship Specialty Start Date End Date No, Physician [facility] PCP - General 04/10/16 FOR RECORDS PERTAINING TO PATIENTS WHO ARE OR HAVE BEEN ENROLLED IN A CHEMICAL DEPENDENCY/SUBSTANCEABUSE PROGRAM, SOME INFORMATION MAY BE OMITTED. This clinical summary was aggregated from multiple sources. Caution should be exercised in using it in the provision of clinical care. This summary normalizes information from multiple sources, and as a consequence, information in this document may materially change the coding, format and clinical context of patient data. In addition, data may be omitted in some cases. CLINICAL DECISIONS SHOULD BE BASED ON THE PRIMARY CLINICAL RECORDS. [facility] provides no warranty or guarantee of the accuracy or completeness of information in this document.
== END | disposition home or self-care (01) ==
PROVIDERS: PCP Internal Medicine; Referring Provider Internal Medicine; Visit Provider Internal Medicine
DX: R22.1 Localized swelling, mass and lump, neck (principal)
CPT/HCPCS: 76536